=== PATIENT | male | born 1945 | race Caucasian/White ===

== ENCOUNTER 2016-10-22 07:38 | Emergency (ER) | payer MEDICARE, BC ==
--- NOTE | 2016-10-22 08:11 | EDM.PDOC ---
ED HPI ENT - General Chief Complaint: ENT Problem Stated Complaint: NOSE BLEED Time Seen by Provider: 10/22/16 07:57 Source of Information: Reports: Patient, RN notes reviewed - History of Present Illness INITIAL COMMENTS - FREE TEXT/NARRATIVE: 71-year-old male comes in with left nosebleed. This started this morning an hour or 2 ago. Was able to get that slowed down with some cotton plugs. He had no drainage down the back of his throat. He states this has been bleeding off and on for about 6 months about once every week or 2. He does take daily aspirin. He is not on any other type of blood thinner. He has no chest pain or breathing difficulty. No other unusual symptoms - Related Data Allergies/ADRs: Allergies Allergy/AdvReac Type Severity Reaction Status Date / Time No Known Allergies Allergy Verified 10/22/16 07:48 Home Meds: Home Meds Albuterol [IJD: Ventolin HFA] 2 puff INH Q4H PRN 10/22/16 [History] Aspirin [Halfprin] 81 mg PO DAILY 10/22/16 [History] Budesonide/Formoterol Fumarate [Symbicort 160-4.5 Mcg Inhaler] 2 puff INH BID [History] Diltiazem HCl [Diltiazem 24Hr ER] 360 mg PO DAILY 10/22/16 [History] Hydrochlorothiazide 25 mg PO DAILY 10/22/16 [History] Ipratropium/Albuterol Sulfate [IJD: DuoNeb 3.0-0.5 MG/3 ML] 1 inhalation NEB Q6H PRN 10/22/16 [History] Simvastatin [Zocor] 40 mg PO DAILY 10/22/16 [History] buPROPion HCl [Wellbutrin Xl] 150 mg PO DAILY 10/22/16 [History] cloNIDine HCl [Clonidine HCl] 0.1 mg PO DAILY 10/22/16 [History] Past Medical History HEENT History: Reports: Cataract, Epistaxis, Impaired vision Other HEENT History: wears eyeglasses Cardiovascular History: Reports: High cholesterol, Hypertension Respiratory History: Reports: Bronchitis, recurrent, COPD Musculoskeletal History: Reports: Back pain, chronic - Past Surgical History HEENT Surgical History: Reports: Cataract surgery Musculoskeletal Surgical History: Reports: Shoulder surgery Social & Family History - Tobacco Use Smoking Status *Q: Former Smoker Years of Tobacco use: 55 Packs/Tins Daily: 1 Used Tobacco, but Quit: Yes Month Tobacco Last Used: August - Caffeine Use Caffeine Use: Reports: Coffee, Soda - Alcohol Use Days Per Week of Alcohol Use: 7 Number of Drinks Per Day: 2 Total Drinks Per Week: 14 - Recreational Drug Use Recreational Drug Use: No ED ROS ENT - Review of Systems Review Of Systems: See Below Constitutional: Reports: no symptoms HEENT: Reports: Nosebleed. Denies: Throat pain Respiratory: Denies: Shortness of Breath Cardiovascular: Denies: Chest pain, Lightheadedness GI/Abdominal: Denies: Abdominal pain, Nausea, Vomiting Musculoskeletal: Reports: no symptoms Skin: Reports: no symptoms Neurological: Reports: No Symptoms ED EXAM, ENT - Physical Exam Exam: See Below General Appearance: alert, no apparent distress Nose: dried blood, other (Cotton plug present left nares partially blood soaked , after removal there is a small raised papule left mid septum indicating site of prior bleeding.) Mouth/Throat: Normal inspection Head: atraumatic. No: facial swelling Neck: supple Respiratory/Chest: no respiratory distress, lungs clear, normal breath sounds Cardiovascular: regular rate, rhythm Extremities: normal inspection, normal range of motion Neurological: alert, oriented, no motor/sensory deficits Skin: Warm, Dry, Normal color Course - Vital Signs Last Recorded V/S: Last Vital Signs Temp 98.2 F 10/22/16 07:45 Pulse 66 10/22/16 07:45 Resp 18 10/22/16 07:45 BP 157/74 H 10/22/16 07:45 Pulse Ox 97 10/22/16 07:45 - Orders/Labs/Meds Meds: Medications Discontinued Medications Generic Name Dose Route Start Last Admin Trade Name Doris PRN Reason Stop Dose Admin Cocaine HCl 4 ml 10/22/16 08:10 10/22/16 08:12 Cocaine Hcl TOP 10/22/16 08:11 4 ml ONETIME ONE Administration Cocaine HCl Confirm 10/22/16 08:11 Cocaine Hcl Administered 10/22/16 08:12 Dose 4 ml .ROUTE .STK-MED ONE - Re-Assessments/Exams Free Text/Narrative Re-Assessment/Exam: 10/22/16 08:32 On exam of nose there is no active bleeding but a small raised papule left septum indicating source of prior bleeding. We did use 4% cocaine solution on a cotton ball for about 10 minutes and then cauterized that with silver nitrate. No further bleeding. Patient tolerated this well Departure - Departure Time of Disposition: 08:30 Disposition: Home, Self-Care 01 Condition: fair Clinical Impression: Epistaxis Referrals: Manju Roberts, GEAR MACHINE OPERATOR [Primary Care Provider] - Forms: ED Department Discharge Additional Instructions: Stop aspirin for about 3 days. Pressure if needed for further bleeding. This will take about 3 or 4 days to heal, try not to blow nose. Return to ED as needed.
[2016-10-22 09:05] VITALS: BP 146/66
== END 2016-10-22 08:45 | disposition home or self-care (01) ==
LOC: JD.ED 07:38
DX: R04.0 Epistaxis (principal); I10 Essential (primary) hypertension; J44.9 Chronic obstructive pulmonary disease, unspecified; Z98.49 Cataract extraction status, unspecified eye; Z87.891 Personal history of nicotine dependence; Z79.82 Long term (current) use of aspirin; Z79.899 Other long term (current) drug therapy
CPT/HCPCS: 30901; 99282; 99283

== ENCOUNTER 2018-07-07 11:32 | Emergency (ER) | payer MEDICARE, BC ==
--- NOTE | 2018-07-07 12:50 | CR ---
Chest: Two views of the chest were obtained. Comparison: No prior chest x-ray. Diaphragms are flattened on the lateral view suggesting emphysematous change. Lungs are clear with no acute parenchymal change. Heart size and mediastinum are normal. Bony structures show nothing acute. Previous right shoulder surgery is noted. Impression: 1. Probable emphysematous change. 2. Nothing acute is appreciated on two-view chest x-ray. Diagnostic code #2
[2018-07-07] MEDS ORDERED: Albuterol/Ipratropium 3.0-0.5 MG/3 ML Neb Soln NEB ONE (13:15)
--- NOTE | 2018-07-07 13:28 | EDM.PDOC ---
ED HPI GENERAL MEDICAL PROBLEM - General Chief Complaint: Respiratory Problem Stated Complaint: SOB Time Seen by Provider: 07/07/18 11:46 Source of Information: Reports: Patient, RN Notes Reviewed - History of Present Illness INITIAL COMMENTS - FREE TEXT/NARRATIVE: 72 year old male with hx of COPD that has had worsening cough for the past week , mostly nonprod but occasional colored phlegm. No fever or chills. He has had some nasal and sinus zion. More short of breath than usual. No chest or abd pain, no nausea or vomiting. - Related Data Allergies Allergy/AdvReac Type Severity Reaction Status Date / Time No Known Allergies Allergy Verified 07/07/18 11:42 Home Meds: Home Meds Albuterol [IJD: Ventolin HFA] 2 puff INH Q4H PRN 10/22/16 [History] Aspirin [Halfprin] 81 mg PO DAILY 10/22/16 [History] Budesonide/Formoterol Fumarate [Symbicort 160-4.5 Mcg Inhaler] 2 puff INH BID [History] Diltiazem HCl [Diltiazem 24Hr ER] 360 mg PO DAILY 10/22/16 [History] Hydrochlorothiazide 25 mg PO DAILY 10/22/16 [History] Ipratropium/Albuterol Sulfate [IJD: DuoNeb 3.0-0.5 MG/3 ML] 1 inhalation NEB Q6H PRN 10/22/16 [History] Simvastatin [Zocor] 40 mg PO DAILY 10/22/16 [History] buPROPion HCl [Wellbutrin Xl] 150 mg PO DAILY 10/22/16 [History] cloNIDine HCl [Clonidine HCl] 0.1 mg PO DAILY 10/22/16 [History] Doxycycline [Vibramycin] 100 mg IV Q12H #20 vial 07/07/18 [Rx] Doxycycline [Vibramycin] 100 mg PO BID #20 tab 07/07/18 [Rx] predniSONE [Prednisone] 40 mg PO DAILY #10 tablet 07/07/18 [Rx] Past Medical History HEENT History: Reports: Cataract, Epistaxis, Impaired Vision Other HEENT History: Partial dentures Cardiovascular History: Reports: High Cholesterol, Hypertension Respiratory History: Reports: Bronchitis, Recurrent, COPD, Sleep Apnea Musculoskeletal History: Reports: Back Pain, Chronic - Past Surgical History HEENT Surgical History: Reports: Cataract Surgery Cardiovascular Surgical History: Reports: None Respiratory Surgical History: Reports: None Musculoskeletal Surgical History: Reports: Shoulder Surgery, Other (See Below) Other Musculoskeletal Surgeries/Procedures:: Csyt removed from back Social & Family History - Family History Family Medical History: Noncontributory - Tobacco Use Smoking Status *Q: Current Every Day Smoker Years of Tobacco use: 50 Packs/Tins Daily: 0.3 - Caffeine Use Caffeine Use: Reports: Coffee - Recreational Drug Use Recreational Drug Use: No ED ROS GENERAL - Review of Systems Review Of Systems: See Below Constitutional: Denies: Fever, Chills HEENT: Reports: Rhinitis. Denies: Throat Pain Respiratory: Reports: Shortness of Breath, Wheezing, Cough, Sputum. Denies: Pleuritic Chest Pain Cardiovascular: Reports: Chest Pain (with coughing) GI/Abdominal: Denies: Abdominal Pain, Nausea, Vomiting Musculoskeletal: Denies: Leg Pain Skin: Denies: Rash Neurological: Denies: Headache ED EXAM, GENERAL - Physical Exam Exam: See Below General Appearance: Alert, No Apparent Distress Eye Exam: Bilateral Eye: PERRL Nose: Normal Inspection Throat/Mouth: Normal Inspection, Normal Oropharynx Head: Atraumatic. No: Facial Swelling Neck: Supple, Full Range of Motion, Other (no JVD). No: Lymphadenopathy (L), Lymphadenopathy (R) Respiratory/Chest: No Respiratory Distress, Decreased Breath Sounds (mild bilat) , Wheezing (mild). No: Rhonchi Cardiovascular: Regular Rate, Rhythm GI/Abdominal: Soft, Non-Tender Extremities: Normal Inspection, Normal Range of Motion. No: Pedal Edema, Leg Pain Neurological: Alert, Oriented, No Motor/Sensory Deficits Skin Exam: Warm, Dry, Normal Color Course - Vital Signs Last Recorded V/S: Last Vital Signs Temp 98.3 F 07/07/18 13:40 Pulse 60 07/07/18 13:40 Resp 17 07/07/18 13:40 BP 139/49 L 07/07/18 13:40 Pulse Ox 94 L 07/07/18 13:40 - Orders/Labs/Meds Labs: Laboratory Tests 07/07/18 Range/Units 12:20 WBC 12.61 H (4.23-9.07) K/mm3 RBC 3.99 L (4.63-6.08) M/mm3 Hgb 13.1 L (13.7-17.5) gm/L Hct 36.7 L (40.1-51.0) % MCV 92.0 (79.0-92.2) fl MCH 32.8 H (25.7-32.2) pg MCHC 35.7 H (32.2-35.5) g/dl RDW Std Deviation 43.5 (35.1-43.9) fL Plt Count 308 (163-337) K/mm3 MPV 7.8 L (9.4-12.3) fl Neut % (Auto) 82.0 H (34.0-67.9) % Lymph % (Auto) 10.4 L (21.8-53.1) % [place] % (Auto) 7.1 (5.3-12.2) % Eos % (Auto) 0.1 L (0.8-7.0) Baso % (Auto) 0.1 (0.1-1.2) % Neut # (Auto) 10.34 H (1.78-5.38) K/mm3 Lymph # (Auto) 1.31 L (1.32-3.57) K/mm3 [place] # (Auto) 0.90 H (0.30-0.82) K/mm3 Eos # (Auto) 0.01 L (0.04-0.54) K/mm3 Baso # (Auto) 0.01 (0.01-0.08) K/mm3 Meds: Medications Discontinued Medications Generic Name Dose Route Start Last Admin Trade Name Freq PRN Reason Stop Dose Admin Albuterol/Ipratropium 3 ml 07/07/18 13:15 07/07/18 13:28 Duoneb 3.0-0.5 Mg/3 Ml NEB 07/07/18 13:16 3 ml ONETIME ONE Administration - Re-Assessments/Exams Free Text/Narrative Re-Assessment/Exam: 07/09/18 14:18 X ray does not show acute infiltrate Departure - Departure Time of Disposition: 13:25 Disposition: Home, Self-Care 01 Condition: Fair Clinical Impression: Bronchitis - Discharge Information Prescriptions: Doxycycline [Vibramycin] 100 mg PO BID #20 tab Doxycycline [Vibramycin] 100 mg IV Q12H #20 vial predniSONE [Prednisone] 40 mg PO DAILY #10 tablet Instructions: Acute Bronchitis, Adult, [id number] Referrals: Liyah Henry NP [Primary Care Provider] - Forms: ED Department Discharge Additional Instructions: doxycycline 100 mg twice daily for 10 days or until gone, prednisone 40 mg q day for today and q am for the next 3 days, than 20 mg q AM for the next 2 days. Follow up clinic if not much better within 5 to 7 days as expected. Return to ED if symptoms worsening in any way.
[2018-07-07 14:38] VITALS: BP 139/49
== END 2018-07-07 13:42 | disposition home or self-care (01) ==
LOC: JD.ED 11:32
DX: J40 Bronchitis, not specified as acute or chronic (principal); I10 Essential (primary) hypertension; E78.00 Pure hypercholesterolemia, unspecified; F17.210 Nicotine dependence, cigarettes, uncomplicated; Z79.82 Long term (current) use of aspirin; Z79.899 Other long term (current) drug therapy; Z98.890 Other specified postprocedural states; Z98.49 Cataract extraction status, unspecified eye
CPT/HCPCS: 36415; 71046; 71046-26; 85025; 94640; 99285-25; J7620-GY

== ENCOUNTER 2019-07-15 12:23 | Inpatient (IN) | payer MEDICARE, BC, OTHER ==
[2019-07-15] MEDS ORDERED: Albuterol/Ipratropium 3.0-0.5 MG/3 ML Neb Soln ONE (12:32)
[2019-07-15] MEDS ORDERED: Sodium Chloride 0.9% 10 ML Syringe FLUSH PRN (12:35)
[2019-07-15] MEDS ORDERED: Albuterol/Ipratropium 3.0-0.5 MG/3 ML Neb Soln NEB ONE ×3 (12:35→13:43)
[2019-07-15] MEDS ORDERED: methylPREDNISolone Sodium Succinate 125 MG/2 ML SDV IVPUSH ONE (12:35)
--- NOTE | 2019-07-15 12:43 | EDM.PDOC ---
ED HPI GENERAL MEDICAL PROBLEM - General Chief Complaint: Respiratory Problem Stated Complaint: SOB Time Seen by Provider: 07/15/19 12:34 Source of Information: Reports: Patient History Limitations: Reports: No Limitations - History of Present Illness INITIAL COMMENTS - FREE TEXT/NARRATIVE: Patient is an unfortunate 73-year-old male who presents emergency Department today with complaint of shortness of breath. Patient has a history of COPD and has been in the emergency department here previously for exacerbations of his COPD. Patient is not oxygen dependent does not wear oxygen at home. He reports that yesterday he awoke and was short of breath and wheezing went to the urgent care was diagnosed with a COPD [place] and bronchitis was placed on doxycycline and prednisone was sent home. He reports she's been using his nebulizer at home with minimal improvement in symptoms his symptoms worsened today so he presented emergency department for evaluation. On arrival the emergency department patient's O2 saturation on room air was 86%. Patient was tachypnea retracting and had diffuse wheezing patient denies any fever no chills cough is nonproductive Upper Back Pain Score (Numeric/FACES): 7 - Related Data Allergies Allergy/AdvReac Type Severity Reaction Status Date / Time No Known Allergies Allergy Verified 07/15/19 12:51 Home Meds: Home Meds Albuterol [IJD: Ventolin HFA] 2 puff INH Q4H PRN 10/22/16 [History] Aspirin [Halfprin] 81 mg PO DAILY 10/22/16 [History] Budesonide/Formoterol Fumarate [Symbicort 160-4.5 Mcg Inhaler] 2 puff INH BID [History] Diltiazem HCl [Diltiazem 24Hr ER] 360 mg PO DAILY 10/22/16 [History] Hydrochlorothiazide 50 mg PO DAILY 10/22/16 [History] Ipratropium/Albuterol Sulfate [IJD: DuoNeb 3.0-0.5 MG/3 ML] 1 inhalation NEB Q6H PRN 10/22/16 [History] Simvastatin [Zocor] 80 mg PO DAILY 10/22/16 [History] buPROPion HCl [Wellbutrin Xl] 150 mg PO DAILY 10/22/16 [History] cloNIDine HCL [Clonidine HCl] 0.1 mg PO DAILY 10/22/16 [History] Doxycycline [Vibramycin] 100 mg PO BID #20 tab 07/07/18 [Rx] predniSONE [Prednisone] 40 mg PO DAILY #10 tablet 07/07/18 [Rx] B2/Vits A,C,E/Lut/Zeaxanth/Min [Icaps] 1 each PO DAILY 07/15/19 [History] Past Medical History HEENT History: Reports: Cataract, Epistaxis, Impaired Vision Other HEENT History: Partial dentures Cardiovascular History: Reports: High Cholesterol, Hypertension Respiratory History: Reports: Bronchitis, Recurrent, COPD, Sleep Apnea Musculoskeletal History: Reports: Back Pain, Chronic - Past Surgical History HEENT Surgical History: Reports: Cataract Surgery Cardiovascular Surgical History: Reports: None Respiratory Surgical History: Reports: None Musculoskeletal Surgical History: Reports: Shoulder Surgery, Other (See Below) Other Musculoskeletal Surgeries/Procedures:: Csyt removed from back Social & Family History - Family History Family Medical History: Noncontributory - Caffeine Use Caffeine Use: Reports: Coffee ED ROS GENERAL - Review of Systems Review Of Systems: See Below Constitutional: Denies: Fever, Chills Respiratory: Reports: Shortness of Breath, Wheezing, Cough Cardiovascular: Denies: Chest Pain ED EXAM, GENERAL - Physical Exam Exam: See Below Exam Limited By: No Limitations General Appearance: Alert, WD/WN, Mild Distress Respiratory/Chest: Respiratory Distress (Tachypnea with retractions), Decreased Breath Sounds (In both bases), Wheezing (Diffuse) Cardiovascular: Normal Peripheral Pulses, Regular Rate, Rhythm GI/Abdominal: Normal Bowel Sounds, Soft, Non-Tender, No Organomegaly, No Distention, No Abnormal Bruit, No Mass Back Exam: Normal Inspection, Full Range of Motion, NT Extremities: Normal Inspection, Normal Range of Motion, Non-Tender, Normal Capillary Refill, No Pedal Edema Neurological: Alert, Oriented Skin Exam: Warm, Dry EKG INTERPRETATION EKG Date: 07/15/19 Time: 12:47 Rhythm: NSR Rate (Beats/Min): 71 [place]: Normal P-Wave: Present QRS: Normal ST-T: Normal QT: Normal Course - Vital Signs Last Recorded V/S: Last Vital Signs Temp 99.3 F 07/15/19 12:25 Pulse 70 07/15/19 12:25 Resp 20 07/15/19 12:25 BP 160/65 H 07/15/19 12:25 Pulse Ox 96 07/15/19 14:11 - Orders/Labs/Meds Orders: Active Orders 24 hr Category Date Time Status EKG Documentation Completion [RC] ASDIRECTED Care 07/15/19 12:36 Active Oxygen Therapy [RC] ASDIRECTED Care 07/15/19 12:37 Active RT Aerosol Therapy [RC] ASDIRECTED Care 07/15/19 12:36 Active RT Aerosol Therapy [RC] ASDIRECTED Care 07/15/19 13:43 Active RT Arterial Blood Gases, ABG [RC] Click to Edit Care 07/15/19 14:53 Active CBC WITH AUTO DIFF [HEME] Stat Lab 07/15/19 11:23 Results CULTURE BLOOD [BC] Stat Lab 07/15/19 13:40 Received CULTURE BLOOD [BC] Stat Lab 07/15/19 13:51 Received UA RFX DREW AND CULT IF INDIC [URIN] Stat Lab 07/15/19 12:35 Ordered Levofloxacin/Dextrose 5%-Water [Levaquin in D5W 500 MG/ Med 07/15/19 14:50 Active 100 ML] 500 mg Premix Bag 1 bag IV ONETIME Sodium Chloride 0.9% [Saline Flush] Med 07/15/19 12:35 Active 10 ml FLUSH ASDIRECTED PRN Blood Culture x2 Reflex Set [OM.PC] Stat Oth 07/15/19 12:35 Ordered Saline Lock Insert [OM.PC] Stat Oth 07/15/19 12:35 Ordered EKG 12 Lead [EK] Stat Ther 07/15/19 12:35 Ordered Medication Orders Levofloxacin/Dextrose 500 mg/ (Premix) 100 mls @ 100 mls/hr IV ONETIME ONE Stop: 07/15/19 15:49 Sodium Chloride (Saline Flush) 10 ml FLUSH ASDIRECTED PRN PRN Reason: Keep Vein Open Last Admin: 07/15/19 13:00 Dose: 10 ml Labs: Laboratory Tests 07/15/19 07/15/19 07/15/19 Range/Units 11:23 11:23 11:23 WBC 12.11 H (4.23-9.07) K/mm3 RBC 4.42 L (4.63-6.08) M/mm3 Hgb 14.1 (13.7-17.5) gm/dl Hct 42.1 (40.1-51.0) % MCV 95.2 H D (79.0-92.2) fl MCH 31.9 (25.7-32.2) pg MCHC 33.5 (32.2-35.5) g/dl RDW Std Deviation 44.9 H (35.1-43.9) fL Plt Count 352 H (163-337) K/mm3 MPV 8.5 L (9.4-12.3) fl Neut % (Auto) 85.3 H (34.0-67.9) % Lymph % (Auto) 8.3 L (21.8-53.1) % [place] % (Auto) 5.5 (5.3-12.2) % Eos % (Auto) 0 L (0.8-7.0) Baso % (Auto) 0.2 (0.1-1.2) % Neut # (Auto) 10.33 H (1.78-5.38) K/mm3 Lymph # (Auto) 1.01 L (1.32-3.57) K/mm3 [place] # (Auto) 0.67 (0.30-0.82) K/mm3 Eos # (Auto) 0.00 L (0.04-0.54) K/mm3 Baso # (Auto) 0.02 (0.01-0.08) K/mm3 Sodium 132 L (136-145) mEq/L Potassium 3.7 (3.5-5.1) mEq/L Chloride 94 L (98-107) mEq/L Carbon Dioxide 26 (21-32) mEq/L Anion Gap 15.7 H (5-15) BUN 26 H (7-18) mg/dL Creatinine 1.2 (0.7-1.3) mg/dL Est Cr Clr Drug Dosing 49.47 mL/min Estimated GFR (MDRD) 59 (>60) mL/min BUN/Creatinine Ratio 21.7 H (14-18) Glucose 198 H (83-115) mg/dL Lactic Acid (0.4-2.0) mmol/L Calcium 9.5 (8.5-10.1) mg/dL Total Bilirubin 0.2 (0.2-1.0) mg/dL AST 9 L (15-37) U/L ALT 25 (16-63) U/L Alkaline Phosphatase 94 (46-116) U/L Troponin I < 0.017 (0.00-0.056) ng/mL NT-Pro-B Natriuret Pep 148 H (0-125) pg/mL Total Protein 7.5 (6.4-8.2) g/dl Albumin 3.9 (3.4-5.0) g/dl Globulin 3.6 gm/dL Albumin/Globulin Ratio 1.1 (1-2) 07/15/19 Range/Units 13:40 WBC (4.23-9.07) K/mm3 RBC (4.63-6.08) M/mm3 Hgb (13.7-17.5) gm/dl Hct (40.1-51.0) % MCV (79.0-92.2) fl MCH (25.7-32.2) pg MCHC (32.2-35.5) g/dl RDW Std Deviation (35.1-43.9) fL Plt Count (163-337) K/mm3 MPV (9.4-12.3) fl Neut % (Auto) (34.0-67.9) % Lymph % (Auto) (21.8-53.1) % [place] % (Auto) (5.3-12.2) % Eos % (Auto) (0.8-7.0) Baso % (Auto) (0.1-1.2) % Neut # (Auto) (1.78-5.38) K/mm3 Lymph # (Auto) (1.32-3.57) K/mm3 [place] # (Auto) (0.30-0.82) K/mm3 Eos # (Auto) (0.04-0.54) K/mm3 Baso # (Auto) (0.01-0.08) K/mm3 Sodium (136-145) mEq/L Potassium (3.5-5.1) mEq/L Chloride (98-107) mEq/L Carbon Dioxide (21-32) mEq/L Anion Gap (5-15) BUN (7-18) mg/dL Creatinine (0.7-1.3) mg/dL Est Cr Clr Drug Dosing mL/min Estimated GFR (MDRD) (>60) mL/min BUN/Creatinine Ratio (14-18) Glucose (83-115) mg/dL Lactic Acid 2.2 H* (0.4-2.0) mmol/L Calcium (8.5-10.1) mg/dL Total Bilirubin (0.2-1.0) mg/dL AST (15-37) U/L ALT (16-63) U/L Alkaline Phosphatase (46-116) U/L Troponin I (0.00-0.056) ng/mL NT-Pro-B Natriuret Pep (0-125) pg/mL Total Protein (6.4-8.2) g/dl Albumin (3.4-5.0) g/dl Globulin gm/dL Albumin/Globulin Ratio (1-2) Meds: Medications Generic Name Dose Route Start Last Admin Trade Name Freq PRN Reason Stop Dose Admin Levofloxacin/Dextrose 500 mg/ 100 mls @ 100 mls/hr 07/15/19 14:50 Premix IV 07/15/19 15:49 ONETIME ONE Sodium Chloride 10 ml 07/15/19 12:35 07/15/19 13:00 Saline Flush FLUSH 10 ml ASDIRECTED PRN Administration Keep Vein Open Discontinued Medications Generic Name Dose Route Start Last Admin Trade Name Freq PRN Reason Stop Dose Admin Albuterol/Ipratropium Confirm 07/15/19 12:32 07/15/19 12:39 Duoneb 3.0-0.5 Mg/3 Ml Administered 07/15/19 12:33 6 ml Dose Administration 6 ml .ROUTE .STK-MED ONE Albuterol/Ipratropium 6 ml 07/15/19 12:35 07/15/19 14:11 Duoneb 3.0-0.5 Mg/3 Ml NEB 07/15/19 12:36 Not Given ONETIME ONE Albuterol/Ipratropium 6 ml 07/15/19 12:35 Duoneb 3.0-0.5 Mg/3 Ml NEB 07/15/19 12:36 ONETIME ONE Albuterol/Ipratropium 3 ml 07/15/19 13:43 07/15/19 14:11 Duoneb 3.0-0.5 Mg/3 Ml NEB 07/15/19 13:44 3 ml ONETIME ONE Administration Methylprednisolone Sodium Succinate 125 mg 07/15/19 12:35 07/15/19 12:59 Solu-Medrol IVPUSH 07/15/19 12:36 125 mg ONETIME ONE Administration - Re-Assessments/Exams Free Text/Narrative Re-Assessment/Exam: 07/15/19 13:13 Chest x-ray interpreted by me NAD Free Text/Narrative Re-Assessment/Exam: 07/15/19 13:44 Patient has had mild improvement in her tachypnea continues to have diffuse wheezing Free Text/Narrative Re-Assessment/Exam: 07/15/19 15:[address] Bhagat who accepts patient for inpatient admission for COPD exacerbation and sepsis Departure - Departure Time of Disposition: 15:01 Disposition: Admitted As Inpatient 66 Condition: Good (Guarded) Clinical Impression: COPD exacerbation Sepsis Qualifiers: Sepsis type: sepsis due to unspecified organism Sepsis acute organ dysfunction status: unspecified Qualified Code(s): A41.9 - Sepsis, unspecified organism - Discharge Information Referrals: Rosemary Carnes MD [Primary Care Provider] - Forms: ED Department Discharge Sepsis Event Note - Focused Exam Vital Signs: Vital Signs Temp Pulse Resp BP Pulse Ox Pulse Ox 07/15/19 14:11 96 07/15/19 12:40 97 07/15/19 12:25 99.3 F 70 20 160/65 H 86 L Date Exam was Performed: 07/15/19 Time Exam was Performed: 15:01 - My Orders Last 24 Hours: My Active Orders 07/15/19 11:23 CBC WITH AUTO DIFF [HEME] Stat 07/15/19 12:35 UA RFX DREW AND CULT IF INDIC [URIN] Stat Sodium Chloride 0.9% [Saline Flush] 10 ml FLUSH ASDIRECTED PRN Blood Culture x2 Reflex Set [OM.PC] Stat Saline Lock Insert [OM.PC] Stat EKG 12 Lead [EK] Stat 07/15/19 12:36 EKG Documentation Completion [RC] ASDIRECTED RT Aerosol Therapy [RC] ASDIRECTED 07/15/19 12:37 Oxygen Therapy [RC] ASDIRECTED 07/15/19 13:40 CULTURE BLOOD [BC] Stat 07/15/19 13:43 RT Aerosol Therapy [RC] ASDIRECTED 07/15/19 13:51 CULTURE BLOOD [BC] Stat 07/15/19 14:50 Levofloxacin/Dextrose 5%-Water [Levaquin in D5W 500 MG/100 ML] 500 mg Premix Bag 1 bag IV ONETIME 07/15/19 14:53 RT Arterial Blood Gases, ABG [RC] Click to Edit - Assessment/Plan Last 24 Hours: My Active Orders 07/15/19 11:23 CBC WITH AUTO DIFF [HEME] Stat 07/15/19 12:35 UA RFX DREW AND CULT IF INDIC [URIN] Stat Sodium Chloride 0.9% [Saline Flush] 10 ml FLUSH ASDIRECTED PRN Blood Culture x2 Reflex Set [OM.PC] Stat Saline Lock Insert [OM.PC] Stat EKG 12 Lead [EK] Stat 07/15/19 12:36 EKG Documentation Completion [RC] ASDIRECTED RT Aerosol Therapy [RC] ASDIRECTED 07/15/19 12:37 Oxygen Therapy [RC] ASDIRECTED 07/15/19 13:40 CULTURE BLOOD [BC] Stat 07/15/19 13:43 RT Aerosol Therapy [RC] ASDIRECTED 07/15/19 13:51 CULTURE BLOOD [BC] Stat 07/15/19 14:50 Levofloxacin/Dextrose 5%-Water [Levaquin in D5W 500 MG/100 ML] 500 mg Premix Bag 1 bag IV ONETIME 07/15/19 14:53 RT Arterial Blood Gases, ABG [RC] Click to Edit
--- NOTE | 2019-07-15 14:13 | CR ---
Chest: Portable view of the chest was obtained. Comparison: Prior chest x-ray of 07/07/18. Heart size and mediastinum are within normal limits for portable technique. Lungs are clear with no acute parenchymal change. Bony structures are grossly intact. Impression: 1. Nothing acute is seen on portable chest x-ray. Diagnostic code #1 This report was dictated in [place] Standard Time
[2019-07-15] MEDS ORDERED: Levofloxacin/Dextrose 5%-Water 500 MG in Premix Bag 1 BAG IV ONE (14:50)
[2019-07-15] MEDS ORDERED: Ondansetron 4 MG/2 ML SDV IV PRN (16:13)
[2019-07-15] MEDS ORDERED: Ondansetron 4 MG Tab.DIS PO PRN (16:13)
[2019-07-15] MEDS: Oseltamivir 75 MG Cap PO SCH ×2 (16:20→21:13)
[2019-07-15] MEDS: Albuterol/Ipratropium 3.0-0.5 MG/3 ML Neb Soln NEB SCH ×2 (17:00→20:59)
--- NOTE | 2019-07-15 19:33 | PCM.HP.2 ---
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 Symptoms improved mildly but early this morning he started feeling exponentially worse for which he decided to come to the ED. Upper Back Pain Score (Numeric/FACES): 7 - Related Data Allergies/Adverse Reactions: Allergies Allergy/AdvReac Type Severity Reaction Status Date / Time No Known Allergies Allergy Verified 07/15/19 18:40 Home Medications: Home Meds Aspirin [Halfprin] 81 mg PO DAILY 10/22/16 [History] Budesonide/Formoterol Fumarate [Symbicort 160-4.5 Mcg Inhaler] 2 puff INH BID [History] Diltiazem HCl [Diltiazem 24Hr ER] 360 mg PO DAILY 10/22/16 [History] Hydrochlorothiazide 12.5 mg PO DAILY 10/22/16 [History] Ipratropium/Albuterol Sulfate [IJD: DuoNeb 3.0-0.5 MG/3 ML] 1 inhalation NEB Q6H PRN 10/22/16 [History] buPROPion HCl [Wellbutrin Xl] 150 mg PO DAILY 10/22/16 [History] cloNIDine HCL [Clonidine HCl] 0.1 mg PO DAILY 10/22/16 [History] Doxycycline [Vibramycin] 100 mg PO BID #20 tab 07/07/18 [Rx] predniSONE [Prednisone] 40 mg PO DAILY #10 tablet 07/07/18 [Rx] B2/Vits A,C,E/Lut/Zeaxanth/Min [Icaps] 1 each PO DAILY 07/15/19 [History] Cholecalciferol (Vitamin D3) [Vitamin D3] 2,000 unit PO DAILY 07/15/19 [History] Rosuvastatin Calcium 10 mg PO BEDTIME 07/15/19 [History] Past Medical History HEENT History: Reports: Cataract, Epistaxis, Impaired Vision Other HEENT History: Partial lower dentures. wears glasses Cardiovascular History: Reports: High Cholesterol, Hypertension Respiratory History: Reports: Bronchitis, Recurrent, COPD, Sleep Apnea Other Respiratory History: wear cpap at night Gastrointestinal History: Reports: None Genitourinary History: Reports: Urinary Incontinence Musculoskeletal History: Reports: Back Pain, Chronic Psychiatric History: Reports: None Endocrine/Metabolic History: Reports: None Hematologic History: Reports: None Immunologic History: Reports: None Oncologic (Cancer) History: Reports: None Dermatologic History: Reports: None - Infectious Disease History Infectious Disease History: Reports: Chicken Pox, Measles, Mumps - Past Surgical History HEENT Surgical History: Reports: Cataract Surgery Cardiovascular Surgical History: Reports: None Respiratory Surgical History: Reports: None GI Surgical History: Reports: Colonoscopy Neurological Surgical History: Reports: Lumbar Spine Musculoskeletal Surgical History: Reports: Shoulder Surgery, Other (See Below) Other Musculoskeletal Surgeries/Procedures:: Cyst removed from back Social & Family History - Family History Family Medical History: Noncontributory - Tobacco Use Smoking Status *Q: Former Smoker Used Tobacco, but Quit: Yes Month/Year Tobacco Last Used: 2015 - Caffeine Use Caffeine Use: Reports: Coffee Other Caffeine Use: decaff - Recreational Drug Use Recreational Drug Use: No H&P Review of Systems - Review of Systems: Review Of Systems: See Below General: Reports: Fatigue. Denies: Fever, Chills, Malaise, Weakness, Night Sweats, Diaphoresis, Decreased Appetite, Weight Loss, Weight Gain HEENT: Denies: Headaches, Rhinitis, Post Nasal Drip, Sinus Congestion, Sore Throat, Vertigo, Visual Changes Pulmonary: Reports: Shortness of Breath, Wheezing, Cough, Sputum. Denies: Pleuritic Chest Pain, Hemoptysis Cardiovascular: Denies: Chest Pain, Palpitations, Dyspnea on Exertion, Orthopnea , PND, Edema, Lightheadedness, Syncope Gastrointestinal: Denies: Abdominal Pain, Anorexia, Constipation, Diarrhea, Decreased Appetite, Difficulty Swallowing, Distension, Flatus, Nausea, Vomiting Genitourinary: Denies: Dysuria, Frequency, Burning, Pain, Urgency, Incontinence , Retention Musculoskeletal: Denies: Joint Pain, Joint Swelling, Muscle Pain Skin: Denies: Cyanosis, Jaundice, Mottled, Pallor, Diaphoresis, Dryness, Bruising Psychiatric: Denies: Confusion, Depression, Mood Lability, Anxiety Neurological: Denies: Confusion, Dizziness, Headache, Numbness Exam - Exam Exam: See Below - Vital Signs Vital Signs: Last Vital Signs Temp 97.5 F 07/15/19 18:27 Pulse 68 07/15/19 18:27 Resp 20 07/15/19 18:27 BP 168/72 H 07/15/19 18:27 Pulse Ox 96 07/15/19 18:27 Weight: 78.426 kg - Exam Quality Assessment: Supplemental Oxygen General: Alert, Oriented, Cooperative, Moderate Distress HEENT: Conjunctiva Clear, EACs Clear, EOMI, Hearing Intact, Mucosa Moist & [place] Neck: Supple, Trachea Midline, +2 Carotid Pulse wo Bruit, Full Range of Motion. No: Lymphadenopathy Lungs: Decreased Breath Sounds, Wheezing. No: Crackles, Rales, Rhonchi, Rub Cardiovascular: Regular Rate, Regular Rhythm. No: Systolic Murmur, Diastolic Murmur, Rubs, Gallop/S3, Gallop/S4 GI/Abdominal Exam: Normal Bowel Sounds, Non-Tender, No Organomegaly, No Distention. No: Guarding, Rigid, Rebound Back Exam: Normal Inspection Extremities: Normal Inspection, Non-Tender, No Pedal Edema, Normal Capillary Refill Skin: Warm, Dry Neuro Extensive - Mental Status: Alert, Oriented x3 Psychiatric: Alert, Normal Affect, Normal Mood - Patient Data Result Diagrams: 07/16/19 05:45 07/16/19 05:45 Sepsis Event Note - Evaluation Sepsis Screening Result: No Definite Risk - Focused Exam Vital Signs: Vital Signs Temp Temp Pulse Pulse Resp BP BP 07/15/19 18:27 97.5 F 68 20 168/72 H 07/15/19 17:01 07/15/19 14:11 07/15/19 12:40 07/15/19 12:25 99.3 F 70 20 160/65 H Pulse Ox Pulse Ox 07/15/19 18:27 96 07/15/19 17:01 93 L 07/15/19 14:11 96 07/15/19 12:40 97 07/15/19 12:25 86 L Date Exam was Performed: 07/16/19 Time Exam was Performed: 14:25 - Problem List (1) COPD exacerbation SNOMED Code(s): 317281215 ICD Code: J44.1 - CHRONIC OBSTRUCTIVE PULMONARY DISEASE W (ACUTE) EXACERBATION Status: Acute Current Visit: Yes (2) Acute hypoxemic respiratory failure SNOMED Code(s): 851879834 ICD Code: J96.01 - ACUTE RESPIRATORY FAILURE WITH HYPOXIA Status: Acute Current Visit: Yes (3) Community acquired pneumonia SNOMED Code(s): 931848410 ICD Code: J18.9 - PNEUMONIA, UNSPECIFIED ORGANISM Status: Acute Current Visit: Yes (4) Lactic acid increased SNOMED Code(s): 04256820 ICD Code: E87.2 - ACIDOSIS Status: Acute Current Visit: Yes (5) Influenza vaccination up to date SNOMED Code(s): 581245315, 304640375 ICD Code: Z78.9 - OTHER SPECIFIED HEALTH STATUS Status: Acute Current Visit: Yes (6) Exposure to influenza SNOMED Code(s): 546579164 ICD Code: Z20.828 - CONTACT W AND EXPOSURE TO OTH VIRAL COMMUNICABLE DISEASES Status: Acute Current Visit: Yes (7) Hypertension SNOMED Code(s): 89888948 ICD Code: I10 - ESSENTIAL (PRIMARY) HYPERTENSION Status: Acute Current Visit: Yes (8) Dyslipidemia SNOMED Code(s): 300974600 ICD Code: E78.5 - HYPERLIPIDEMIA, UNSPECIFIED Status: Acute Current Visit : Yes Problem List Initiated/Reviewed/Updated: Yes Assessment/Plan Comment:: COPD exacerbation Acute hypoxemic respiratory failure Community acquired pneumonia Lactic acid increased Influenza vaccination up to date / Exposure to influenza Worsening shortness of breath and productive cough of white sputum 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 pneumo and respiratory panel testing - Repeat lactic acid 3h after initial lab - Start Tamiflu 75mg BID - Rt assessment and treat - Hold home nebs and inhalers Hypertension BP on admission 160/65 Patient SOB and in significant distress On diltiazem and HCTZ at home PLAN - Monitor BP - Continue home meds - PRN hydralazine PROPHYLAXIS DVT-antiembolic device GI- Not indicated CODE STATUS: FULL CODE DISPOSITION: Patient will be admitted on scheduled nebs, pending serologies for etiology and steroids. Discharge likely in the next 24-48 hours Lives at home with , independent. - Mortality Measure Prognosis:: Good
[2019-07-15] MEDS: Benzonatate 100 MG Cap PO SCH (21:14)
[2019-07-15] MEDS: guaiFENesin 600 MG Tab.ER PO SCH (21:14)
[2019-07-15] MEDS: Acetaminophen 325 MG Tab PO PRN (21:30)
[2019-07-15] MEDS: Azithromycin 250 MG Tab PO SCH (22:56)
[2019-07-16] MEDS: Albuterol/Ipratropium 3.0-0.5 MG/3 ML Neb Soln NEB SCH ×6 (01:52→22:30)
[2019-07-16] MEDS: Budesonide 0.5 MG/2 ML Neb Susp NEB SCH ×4 (01:52→22:30)
[2019-07-16] MEDS: Acetaminophen 325 MG Tab PO PRN (04:48)
[2019-07-16] MEDS: Benzonatate 100 MG Cap PO SCH ×3 (08:37→20:36)
[2019-07-16] MEDS: guaiFENesin 600 MG Tab.ER PO SCH ×2 (08:37→20:36)
[2019-07-16] MEDS: Oseltamivir 75 MG Cap PO SCH ×2 (08:38→20:36)
[2019-07-16] MEDS: ROSUVASTATIN CALCIUM 20 MG PO SCH ×2 (09:31→20:40)
[2019-07-16] MEDS: DILTIAZEM HCL 360 MG PO SCH (09:39)
[2019-07-16] MEDS: cloNIDine 0.1 MG Tab PO SCH (09:39)
[2019-07-16] MEDS: Aspirin 81 MG Tab.EC PO SCH (09:39)
[2019-07-16] MEDS: PREDNISONE 20 MG PO SCH (09:40)
[2019-07-16] MEDS: buPROPion 150 MG Tab.ER PO SCH (09:40)
[2019-07-16] MEDS: Hydrochlorothiazide 25 MG Tab **PTOM PO SCH (09:47)
--- NOTE | 2019-07-16 14:22 | PCM.PN ---
- General Info Date of Service: 07/16/19 Subjective Update: Feeling better Slept ok Eating ok Ambulating BM today - Patient Data Vitals - Most Recent: Last Vital Signs Temp 97.3 F 07/16/19 11:39 Pulse 78 07/16/19 11:39 Resp 20 07/16/19 11:39 BP 144/48 H 07/16/19 11:39 Pulse Ox 96 07/16/19 11:39 Weight - Most Recent: 76.884 kg - Exam Quality Assessment: Supplemental Oxygen General: Alert, Oriented, Cooperative, Mild Distress HEENT: Pupils Equal, Pupils Reactive, EOMI, Mucous Membr. Moist/[place] Neck: Supple, Trachea Midline, No JVD, No Thyromegaly, +2 Carotid Pulse wo Bruit Lungs: Decreased Breath Sounds, Wheezing. No: Clear to Auscultation, Crackles, Rales, Rhonchi Cardiovascular: Regular Rate, Regular Rhythm. No: Murmurs, Gallops, Rubs GI/Abdominal Exam: Normal Bowel Sounds, Soft, Non-Tender. No: Distended, Guarding, Rigid, Rebound Back Exam: Normal Inspection Extremities: Normal Inspection, Normal Range of Motion, Non-Tender, No Pedal Edema, Normal Capillary Refill Skin: Warm, Dry Neurological: No New Focal Deficit Psy/Mental Status: Alert, Normal Affect, Normal Mood Sepsis Event Note - Evaluation Sepsis Screening Result: No Definite Risk - Focused Exam Vital Signs: Vital Signs Temp Pulse Resp BP Pulse Ox Pulse Ox 07/16/19 11:39 97.3 F 78 20 144/48 H 96 07/16/19 09:46 93 L 07/16/19 09:39 136/80 07/16/19 08:39 79 96 07/16/19 08:35 97.5 F 77 20 136/80 97 07/16/19 08:11 95 07/16/19 06:06 91 L 07/16/19 04:26 98.1 F 85 20 168/99 H 95 Date Exam was Performed: 07/16/19 Time Exam was Performed: 14:51 - Problem List & Annotations (1) Mycoplasma pneumonia SNOMED Code(s): 90289540 Code(s): J15.7 - PNEUMONIA DUE TO MYCOPLASMA PNEUMONIAE Status: Acute Current Visit: Yes (2) Acute hypoxemic respiratory failure SNOMED Code(s): 535602704 Code(s): J96.01 - ACUTE RESPIRATORY FAILURE WITH HYPOXIA Status: Acute Current Visit: Yes (3) COPD exacerbation SNOMED Code(s): 727403883 Code(s): J44.1 - CHRONIC OBSTRUCTIVE PULMONARY DISEASE W (ACUTE) EXACERBATION Status: Acute Current Visit: Yes (4) Community acquired pneumonia SNOMED Code(s): 085540607 Code(s): J18.9 - PNEUMONIA, UNSPECIFIED ORGANISM Status: Acute Current Visit: Yes (5) Exposure to influenza SNOMED Code(s): 809024500 Code(s): Z20.828 - CONTACT W AND EXPOSURE TO OTH VIRAL COMMUNICABLE DISEASES Status: Acute Current Visit: Yes (6) Hypertension SNOMED Code(s): 15211058 Code(s): I10 - ESSENTIAL (PRIMARY) HYPERTENSION Status: Acute Current Visit: Yes (7) Dyslipidemia SNOMED Code(s): 499652961 Code(s): E78.5 - HYPERLIPIDEMIA, UNSPECIFIED Status: Acute Current Visit : Yes - Problem List Review Problem List Initiated/Reviewed/Updated: Yes - Plan Plan:: Mycoplasma pneumonia COPD exacerbation Acute hypoxemic respiratory failure Influenza vaccination up to date / Exposure to influenza Worsening shortness of breath and productive cough of white sputum-->SatO2 in ED 86%, PaO2 70 on ABG--Given DuoNebs, solumedrol in ED with minimal improvement 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 pneumo and respiratory panel testing - Continue Tamiflu 75mg BID and mycoplasma - Rt assessment and treat - Hold home nebs and inhalers Hypertension BP trend 161-178/60-72 On diltiazem, clonidine and HCTZ at home PLAN - Monitor BP - Continue home meds - PRN hydralazine PROPHYLAXIS DVT-antiembolic device GI- Not indicated CODE STATUS: FULL CODE DISPOSITION: Patient admitted on scheduled nebs, pending serologies for etiology and steroids. Significant interval improvement from yesterday. Discharge likely in the next 24-48 hours Lives at home with , independent.
[2019-07-16] MEDS: Azithromycin 250 MG Tab PO SCH (20:35)
[2019-07-17] MEDS: Albuterol/Ipratropium 3.0-0.5 MG/3 ML Neb Soln NEB SCH ×6 (03:07→21:39)
[2019-07-17] MEDS: Benzonatate 100 MG Cap PO SCH ×3 (08:36→20:51)
[2019-07-17] MEDS: guaiFENesin 600 MG Tab.ER PO SCH ×2 (08:36→20:51)
[2019-07-17] MEDS: Oseltamivir 75 MG Cap PO SCH (08:37)
[2019-07-17] MEDS: Hydrochlorothiazide 25 MG Tab **PTOM PO SCH (08:38)
[2019-07-17] MEDS: buPROPion 150 MG Tab.ER PO SCH (08:38)
[2019-07-17] MEDS: DILTIAZEM HCL 360 MG PO SCH (08:38)
[2019-07-17] MEDS: Aspirin 81 MG Tab.EC PO SCH (08:38)
[2019-07-17] MEDS: PREDNISONE 20 MG PO SCH (08:38)
[2019-07-17] MEDS: cloNIDine 0.1 MG Tab PO SCH (08:39)
[2019-07-17] MEDS: Budesonide 0.5 MG/2 ML Neb Susp NEB SCH ×2 (09:01→21:39)
[2019-07-17] MEDS ORDERED: Rosuvastatin 10 MG Tab PO SCH (14:44)
[2019-07-17] MEDS ORDERED: Hydrochlorothiazide 12.5 MG Cap PO SCH (14:44)
[2019-07-17] MEDS ORDERED: Diltiazem 180 MG Cap.CD PO SCH (14:45)
[2019-07-17] MEDS ORDERED: cloNIDine 0.1 MG Tab PO SCH (14:46)
[2019-07-17] MEDS ORDERED: predniSONE 20 MG Tab PO SCH (14:46)
[2019-07-17] MEDS ORDERED: Aspirin 81 MG Tab.EC PO SCH (14:47)
--- NOTE | 2019-07-17 16:44 | PCM.PN ---
- General Info Date of Service: 07/17/19 Subjective Update: Slept ok Tolerating diet Ambulating with assistance Still requiring O2 supplementation - Patient Data Vitals - Most Recent: Last Vital Signs Temp 98.2 F 07/17/19 16:03 Pulse 64 07/17/19 16:03 Resp 22 H 07/17/19 16:03 BP 118/98 H 07/17/19 16:03 Pulse Ox 93 L 07/17/19 16:03 Weight - Most Recent: 78.381 kg - Exam Quality Assessment: Supplemental Oxygen General: Alert, Oriented, Cooperative, No Acute Distress HEENT: Pupils Equal, Pupils Reactive, EOMI, Mucous Membr. Moist/[place] Neck: Supple, Trachea Midline, No JVD, No Thyromegaly Lungs: Normal Respiratory Effort, Crackles, Wheezing. No: Rales, Rhonchi, Rub Cardiovascular: Regular Rate, Regular Rhythm. No: Murmurs, Gallops, Rubs GI/Abdominal Exam: Normal Bowel Sounds, Soft, Non-Tender. No: Distended, Guarding, Rigid Back Exam: Normal Inspection. No: CVA Tenderness (L), CVA Tenderness (R) Extremities: Normal Inspection, Normal Range of Motion, Non-Tender, No Pedal Edema, Normal Capillary Refill Skin: Warm, Dry Neurological: No New Focal Deficit Psy/Mental Status: Alert Sepsis Event Note - Evaluation Sepsis Screening Result: No Definite Risk - Focused Exam Vital Signs: Vital Signs Temp Pulse Resp BP Pulse Ox Pulse Ox Pulse Ox 07/17/19 16:03 98.2 F 64 22 H 118/98 H 93 L 07/17/19 14:11 90 L 07/17/19 12:00 97.9 F 75 20 158/68 H 94 L 07/17/19 09:01 91 L 07/17/19 08:39 158/84 H 07/17/19 08:35 92 L 07/17/19 08:20 93 L 07/17/19 08:09 97.9 F 72 16 158/84 H 93 L 07/17/19 07:05 92 L Date Exam was Performed: 07/17/19 Time Exam was Performed: 16:39 - Problem List & Annotations (1) Mycoplasma pneumonia SNOMED Code(s): 56054732 Code(s): J15.7 - PNEUMONIA DUE TO MYCOPLASMA PNEUMONIAE Status: Acute Current Visit: Yes (2) Parainfluenza infection SNOMED Code(s): 89808247 Code(s): B34.8 - OTHER VIRAL INFECTIONS OF UNSPECIFIED SITE Status: Acute Current Visit: Yes (3) Acute hypoxemic respiratory failure SNOMED Code(s): 475159137 Code(s): J96.01 - ACUTE RESPIRATORY FAILURE WITH HYPOXIA Status: Acute Current Visit: Yes (4) COPD exacerbation SNOMED Code(s): 553895977 Code(s): J44.1 - CHRONIC OBSTRUCTIVE PULMONARY DISEASE W (ACUTE) EXACERBATION Status: Acute Current Visit: Yes (5) Community acquired pneumonia SNOMED Code(s): 757238802 Code(s): J18.9 - PNEUMONIA, UNSPECIFIED ORGANISM Status: Acute Current Visit: Yes (6) Exposure to influenza SNOMED Code(s): 728676694 Code(s): Z20.828 - CONTACT W AND EXPOSURE TO OTH VIRAL COMMUNICABLE DISEASES Status: Acute Current Visit: Yes (7) Hypertension SNOMED Code(s): 48048462 Code(s): I10 - ESSENTIAL (PRIMARY) HYPERTENSION Status: Acute Current Visit: Yes (8) Dyslipidemia SNOMED Code(s): 645788947 Code(s): E78.5 - HYPERLIPIDEMIA, UNSPECIFIED Status: Acute Current Visit : Yes - Problem List Review Problem List Initiated/Reviewed/Updated: Yes - Plan Plan:: Mycoplasma and Parainfluenza pneumonia COPD exacerbation Acute hypoxemic respiratory failure Influenza vaccination up to date / Exposure to influenza Worsening shortness of breath and productive cough of white sputum-->SatO2 in ED 86%, PaO2 70 on ABG--Given DuoNebs, solumedrol in ED with minimal improvement 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 pneumo and respiratory panel testing - Discontinue Tamiflu - Rt assessment and treat - Hold home nebs and inhalers Hypertension BP trend 106-144/50-99 On diltiazem, clonidine and HCTZ at home PLAN - Monitor BP - Continue home meds - PRN hydralazine PROPHYLAXIS DVT-antiembolic device GI- Not indicated CODE STATUS: FULL CODE DISPOSITION: Patient admitted on scheduled nebs, pending serologies for etiology and steroids. Significant interval improvement since admission. Discharge likely in the next 24-48 hours Lives at home with , independent.
[2019-07-17] MEDS: Azithromycin 250 MG Tab PO SCH (20:51)
[2019-07-18] MEDS: Albuterol/Ipratropium 3.0-0.5 MG/3 ML Neb Soln NEB SCH ×3 (01:11→09:00)
[2019-07-18] MEDS: Benzonatate 100 MG Cap PO SCH (08:26)
[2019-07-18] MEDS: guaiFENesin 600 MG Tab.ER PO SCH (08:27)
[2019-07-18 08:28] VITALS: BP 165/90
[2019-07-18 08:52] VITALS: PULSE 76
[2019-07-18] MEDS: Budesonide 0.5 MG/2 ML Neb Susp NEB SCH (09:00)
[2019-07-18] MEDS ORDERED: buPROPion 150 MG Tab.ER PO SCH (09:00)
--- NOTE | 2019-07-18 11:45 | PCM.DCSUM1 ---
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 Symptoms improved mildly but early this morning he started feeling exponentially worse for which he decided to come to the ED. Diagnosis: Stroke: No - Discharge Data Discharge Date: 07/18/19 Discharge Disposition: Home, Self-Care 01 Condition: Good - Referral to Home Health Primary Care Physician: Rosemary Carnes MD - Discharge Diagnosis/Problem(s) (1) Mycoplasma pneumonia SNOMED Code(s): 41308249 ICD Code: J15.7 - PNEUMONIA DUE TO MYCOPLASMA PNEUMONIAE Status: Acute (2) Parainfluenza infection SNOMED Code(s): 60886032 ICD Code: B34.8 - OTHER VIRAL INFECTIONS OF UNSPECIFIED SITE Status: Acute (3) Acute hypoxemic respiratory failure SNOMED Code(s): 518112627 ICD Code: J96.01 - ACUTE RESPIRATORY FAILURE WITH HYPOXIA Status: Acute (4) COPD exacerbation SNOMED Code(s): 949050542 ICD Code: J44.1 - CHRONIC OBSTRUCTIVE PULMONARY DISEASE W (ACUTE) EXACERBATION Status: Acute (5) Community acquired pneumonia SNOMED Code(s): 272000378 ICD Code: J18.9 - PNEUMONIA, UNSPECIFIED ORGANISM Status: Acute (6) Exposure to influenza SNOMED Code(s): 444368413 ICD Code: Z20.828 - CONTACT W AND EXPOSURE TO OTH VIRAL COMMUNICABLE DISEASES Status: Acute (7) Hypertension SNOMED Code(s): 43082314 ICD Code: I10 - ESSENTIAL (PRIMARY) HYPERTENSION Status: Acute (8) Dyslipidemia SNOMED Code(s): 870289968 ICD Code: E78.5 - HYPERLIPIDEMIA, UNSPECIFIED Status: Acute - Patient Summary/Data Consults: Consultations 07/15/19 16:13 Respiratory Care Assess and Treatment [CONS] Routine Hospital Course: Patient was admitted on scheduled nebs treatments, serology was ordered for mycoplasma, step. pneumonia and respiratory panel. Lab work came back positive for mycoplasma and parainfluenza. Patient was started on azithromycin. Since the patient was seen in the ED he was hypoxemic, he was placed on nasal cannula, continuous nasal cannula was able to be weaned off but patient still required 2L upon exertion which is was he was discharged on. He was discharged to complete 5 days of azithromycin, scheduled nebs, prednisone , benzonatate and guaifenesin. 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 - Discharge Plan *PRESCRIPTION DRUG MONITORING PROGRAM REVIEWED*: No *COPY OF PRESCRIPTION DRUG MONITORING REPORT IN PATIENT JULIUS: No Prescriptions/Med Rec: Albuterol/Ipratropium [DuoNeb 3.0-0.5 MG/3 ML] 3 ml NEB Q4HRRT #20 neb Albuterol/Ipratropium [DuoNeb 3.0-0.5 MG/3 ML] 3 ml NEB Q4HRRT #20 neb Budesonide [Pulmicort] 0.5 mg NEB Q12HR #10 neb Budesonide [Pulmicort] 0.5 mg NEB [id number] #12 neb Azithromycin [Zithromax] 500 mg PO BEDTIME #4 tablet Benzonatate 100 mg PO TID #15 capsule guaiFENesin [Mucinex] 600 mg PO BID #10 tab.er predniSONE 40 mg PO DAILY #6 tablet Home Medications: Home Meds Aspirin [Halfprin] 81 mg PO DAILY 10/22/16 [History] Budesonide/Formoterol Fumarate [Symbicort 160-4.5 Mcg Inhaler] 2 puff INH BID [History] Diltiazem HCl [Diltiazem 24Hr ER] 360 mg PO DAILY 10/22/16 [History] Hydrochlorothiazide 12.5 mg PO DAILY 10/22/16 [History] Ipratropium/Albuterol Sulfate [IJD: DuoNeb 3.0-0.5 MG/3 ML] 1 inhalation NEB Q6H PRN 10/22/16 [History] buPROPion HCl [Wellbutrin Xl] 150 mg PO DAILY 10/22/16 [History] cloNIDine HCL [Clonidine HCl] 0.1 mg PO DAILY 10/22/16 [History] B2/Vits A,C,E/Lut/Zeaxanth/Min [Icaps] 1 each PO DAILY 07/15/19 [History] Rosuvastatin Calcium 10 mg PO BEDTIME 07/15/19 [History] Albuterol/Ipratropium [DuoNeb 3.0-0.5 MG/3 ML] 3 ml NEB Q4HRRT #20 neb 07/18/19 [Rx] Albuterol/Ipratropium [DuoNeb 3.0-0.5 MG/3 ML] 3 ml NEB Q4HRRT #20 neb 07/18/19 [Rx] Azithromycin [Zithromax] 500 mg PO BEDTIME #4 tablet 07/18/19 [Rx] Benzonatate 100 mg PO TID #15 capsule 07/18/19 [Rx] Budesonide [Pulmicort] 0.5 mg NEB Q12HR #10 neb 07/18/19 [Rx] Budesonide [Pulmicort] 0.5 mg NEB [id number] #12 neb 07/18/19 [Rx] guaiFENesin [Mucinex] 600 mg PO BID #10 tab.er 07/18/19 [Rx] predniSONE 40 mg PO DAILY #6 tablet 07/18/19 [Rx] Oxygen Therapy Mode: Nasal Cannula Oxygen Flow Rate (L/min): 2 (with activity) Patient Handouts: Viral Respiratory Infection, Community-Acquired Pneumonia, Adult Referrals: Rosemary Carnes MD [Primary Care Provider] - (Call clinic on Saturday to make an appointment to follow-up with in 1 week.) Starla Ha MD [Physician] - (Patient see's once a year for annual check up through the [facility]) - Discharge Summary/Plan Comment DC Time >30 min.: Yes - General Info Date of Service: 07/18/19 Subjective Update: feeling ok Slept OK Tolerating diet Ambulating BM today - Patient Data Vitals - Most Recent: Last Vital Signs Temp 97.9 F 07/18/19 07:51 Pulse 76 07/18/19 07:51 Resp 20 07/18/19 07:51 BP 165/90 H 07/18/19 08:27 Pulse Ox 90 L 07/18/19 09:00 Weight - Most Recent: 78.018 kg - Exam General: Reports: Alert, Oriented, Cooperative, No Acute Distress HEENT: Reports: Pupils Equal, Pupils Reactive, EOMI, Mucous Membr. Moist/[place] Neck: Reports: Supple, Trachea Midline Lungs: Reports: Clear to Auscultation, Normal Respiratory Effort, Wheezing. Denies: Crackles, Rales, Rhonchi Cardiovascular: Reports: Regular Rate, Regular Rhythm. Denies: Murmurs, Gallops , Rubs GI/Abdominal Exam: Normal Bowel Sounds, Soft, Non-Tender. No: Distended, Guarding, Rigid Back Exam: Reports: Normal Inspection, Full Range of Motion. Denies: CVA Tenderness (L), CVA Tenderness (R) Extremities: Normal Inspection, Normal Range of Motion, Non-Tender, No Pedal Edema, Normal Capillary Refill
== END 2019-07-18 12:05 | disposition home or self-care (01) | DRG 193 ==
LOC: JD.ED 12:23 → SUPCPDRO 12:23 → JD.MS 16:14 → OBSVTOIN 07-17 13:43 → JD.MS 07-17 16:44
PROVIDERS: ADMIT Internal Medicine; ATTEND Internal Medicine
DX: A41.9 Sepsis, unspecified organism (principal); J15.7 Pneumonia due to Mycoplasma pneumoniae; J96.01 Acute respiratory failure with hypoxia; J44.0 Chronic obstructive pulmonary disease with (acute) lower respiratory infection; J44.1 Chronic obstructive pulmonary disease with (acute) exacerbation; I10 Essential (primary) hypertension; E87.2 Acidosis; H54.7 Unspecified visual loss; E78.5 Hyperlipidemia, unspecified; G89.29 Other chronic pain; M54.9 Dorsalgia, unspecified; R32 Unspecified urinary incontinence; E78.00 Pure hypercholesterolemia, unspecified; G47.30 Sleep apnea, unspecified; B34.8 Other viral infections of unspecified site; Z79.51 Long term (current) use of inhaled steroids; Z79.82 Long term (current) use of aspirin; Z78.9 Other specified health status; Z98.49 Cataract extraction status, unspecified eye; Z79.52 Long term (current) use of systemic steroids; Z79.899 Other long term (current) drug therapy; Z87.891 Personal history of nicotine dependence
CPT/HCPCS: 36415 ×2; 36600; 71045; 80048; 80053; 81001; 82306; 82803; 83605; 83735; 83880; 84100; 84145; 84484; 85025 ×2; 86738; 87040 ×2; 87486; 87581; 87632; 87798; 87804 ×2; 87899; 93005; 94640 ×11; 94667; 94668 ×5; 94761 ×2; A9270 ×31; J1956; J2930; 96365; 96375; 99219; 99224; 99231; 99239; 99284; 99285-25; G0378; J7620-GY

== ENCOUNTER 2020-04-24 10:04 | Emergency (ER) | payer MEDICARE, BC, OTHER ==
[2020-04-24 10:20] VITALS: BP 159/66; PULSE 70
[2020-04-24] MEDS ORDERED: Sodium Chloride 0.9% 10 ML Syringe FLUSH PRN (10:44)
--- NOTE | 2020-04-24 11:54 | EDM.PDOC ---
ED HPI GENERAL MEDICAL PROBLEM - General Chief Complaint: Respiratory Problem Stated Complaint: DIFFICULTY BREATHING LOW O2 AND FEVER Time Seen by Provider: 04/24/20 10:20 Source of Information: Reports: Patient History Limitations: Reports: No Limitations - History of Present Illness INITIAL COMMENTS - FREE TEXT/NARRATIVE: The patient presents for a cough and shortness of breath. This started this morning. He has no fever or chills. The cough is productive. He has no abdominal pain, nausea or vomiting. He has COPD and he is on oxygen at home. He is on a few medications for his COPD. He has not been around any one with the COVID 19 virus. He still has a sense of taste and smell. He has no chest pain. Onset: Gradual Duration: Hour(s): Severity: Moderate Improves with: Reports: None Worsens with: Reports: None Associated Symptoms: Reports: Cough, Shortness of Breath. Denies: Fever/Chills, Headaches, Nausea/Vomiting - Related Data Allergies Allergy/AdvReac Type Severity Reaction Status Date / Time No Known Allergies Allergy Verified 07/15/19 18:40 Home Meds: Home Meds Aspirin [Halfprin] 81 mg PO DAILY 10/22/16 [History] Budesonide/Formoterol Fumarate [Symbicort 160-4.5 Mcg Inhaler] 2 puff INH BID 10/22/16 [History] Hydrochlorothiazide 12.5 mg PO DAILY 10/22/16 [History] Ipratropium/Albuterol Sulfate [IJD: DuoNeb 3.0-0.5 MG/3 ML] 1 inhalation NEB Q6H PRN 10/22/16 [History] buPROPion HCL [Wellbutrin Xl] 150 mg PO DAILY 10/22/16 [History] cloNIDine HCL [Clonidine HCl] 0.1 mg PO DAILY 10/22/16 [History] dilTIAZem HCL [Diltiazem 24Hr ER] 360 mg PO DAILY 10/22/16 [History] B2/Vits A,C,E/Lut/Zeaxanth/Min [Icaps] 1 each PO DAILY 07/15/19 [History] Rosuvastatin Calcium 10 mg PO BEDTIME 07/15/19 [History] Albuterol/Ipratropium [DuoNeb 3.0-0.5 MG/3 ML] 3 ml NEB Q4HRRT #20 neb 07/18/19 [Rx] Albuterol/Ipratropium [DuoNeb 3.0-0.5 MG/3 ML] 3 ml NEB Q4HRRT #20 neb 07/18/19 [Rx] Azithromycin [Zithromax] 500 mg PO BEDTIME #4 tablet 07/18/19 [Rx] Benzonatate 100 mg PO TID #15 capsule 07/18/19 [Rx] Budesonide [Pulmicort] 0.5 mg NEB Q12HR #10 neb 07/18/19 [Rx] Budesonide [Pulmicort] 0.5 mg NEB [id number] #12 neb 07/18/19 [Rx] guaiFENesin [Mucinex] 600 mg PO BID #10 tab.er 07/18/19 [Rx] predniSONE 40 mg PO DAILY #6 tablet 07/18/19 [Rx] Amoxicillin/Clavulanate K [Augmentin 875-125 MG] 1 tab PO BID #14 tablet 04/24/20 [Rx] Azithromycin [Zithromax] 250 mg PO DAILY #6 tab 04/24/20 [Rx] Past Medical History HEENT History: Reports: Cataract, Epistaxis, Impaired Vision Other HEENT History: Partial lower dentures. wears glasses Cardiovascular History: Reports: High Cholesterol, Hypertension Respiratory History: Reports: Bronchitis, Recurrent, COPD, Sleep Apnea Other Respiratory History: wear cpap at night Gastrointestinal History: Reports: None Genitourinary History: Reports: Urinary Incontinence Musculoskeletal History: Reports: Back Pain, Chronic Psychiatric History: Reports: None Endocrine/Metabolic History: Reports: None Hematologic History: Reports: None Immunologic History: Reports: None Oncologic (Cancer) History: Reports: None Dermatologic History: Reports: None - Infectious Disease History Infectious Disease History: Reports: Chicken Pox, Measles, Mumps - Past Surgical History HEENT Surgical History: Reports: Cataract Surgery Cardiovascular Surgical History: Reports: None Respiratory Surgical History: Reports: None GI Surgical History: Reports: Colonoscopy Neurological Surgical History: Reports: Lumbar Spine Musculoskeletal Surgical History: Reports: Shoulder Surgery, Other (See Below) Other Musculoskeletal Surgeries/Procedures:: Cyst removed from back Social & Family History - Family History Family Medical History: Noncontributory - Tobacco Use Tobacco Use Status *Q: Current Every Day Tobacco User Years of Tobacco use: 30 Packs/Tins Daily: 0.5 - Caffeine Use Caffeine Use: Reports: Coffee Other Caffeine Use: decaff ED ROS GENERAL - Review of Systems Review Of Systems: See Below Constitutional: Reports: No Symptoms HEENT: Reports: No Symptoms Respiratory: Reports: Shortness of Breath, Cough Cardiovascular: Reports: No Symptoms Endocrine: Reports: No Symptoms GI/Abdominal: Reports: No Symptoms : Reports: No Symptoms Musculoskeletal: Reports: No Symptoms ED EXAM, GENERAL - Physical Exam Exam: See Below Exam Limited By: No Limitations General Appearance: Alert, No Apparent Distress Ears: Normal External Exam Nose: Normal Inspection Head: Atraumatic, Normocephalic Neck: Normal Inspection Respiratory/Chest: No Respiratory Distress, Decreased Breath Sounds, Rhonchi Cardiovascular: Regular Rate, Rhythm, No Edema, No Murmur GI/Abdominal: Soft, Non-Tender, No Organomegaly, No Mass Back Exam: Normal Inspection Extremities: Normal Inspection Course - Vital Signs Last Recorded V/S: Last Vital Signs Temp 99.4 F 04/24/20 10:17 Pulse 70 04/24/20 10:17 Resp 20 04/24/20 10:17 BP 159/66 H 04/24/20 10:17 Pulse Ox 94 L 04/24/20 10:17 - Orders/Labs/Meds Orders: Active Orders 24 hr Category Date Time Status Cardiac Monitoring [RC] . DIRECTED Care 04/24/20 10:44 Active Oxygen Therapy [RC] PRN Care 04/24/20 10:44 Active Peripheral IV Care [RC] . DIRECTED Care 04/24/20 10:45 Active Chest 1V Frontal [CR] Stat Exams 04/24/20 10:45 Taken CULTURE BLOOD [BC] Stat Lab 04/24/20 11:05 Received CULTURE BLOOD [BC] Stat Lab 04/24/20 11:19 Received Sodium Chloride 0.9% [Saline Flush] Med 04/24/20 10:44 Active 10 ml FLUSH ASDIRECTED PRN Blood Culture x2 Reflex Set [OM.PC] Stat Oth 04/24/20 10:45 Ordered Peripheral IV Insertion Adult [OM.PC] Stat Oth 04/24/20 10:44 Ordered Medication Orders Sodium Chloride (Saline Flush) 10 ml FLUSH ASDIRECTED PRN PRN Reason: Keep Vein Open Last Admin: 04/24/20 11:12 Dose: 10 ml Documented by: ABY Labs: Laboratory Tests 04/24/20 04/24/20 04/24/20 Range/Units 10:55 11:05 11:05 WBC 18.55 H (4.23-9.07) K/mm3 RBC 4.59 L (4.63-6.08) M/mm3 Hgb 13.9 (13.7-17.5) gm/dl Hct 41.8 (40.1-51.0) % MCV 91.1 D (79.0-92.2) fl MCH 30.3 (25.7-32.2) pg MCHC 33.3 (32.2-35.5) g/dl RDW Std Deviation 46.9 H (35.1-43.9) fL Plt Count 417 H D (163-337) K/mm3 MPV 8.5 L (9.4-12.3) fl Neut % (Auto) 77.9 H (34.0-67.9) % Lymph % (Auto) 8.8 L (21.8-53.1) % Jay % (Auto) 11.6 (5.3-12.2) % Eos % (Auto) 1.2 (0.8-7.0) Baso % (Auto) 0.2 (0.1-1.2) % Neut # (Auto) 14.45 H (1.78-5.38) K/mm3 Lymph # (Auto) 1.64 (1.32-3.57) K/mm3 Jay # (Auto) 2.15 H (0.30-0.82) K/mm3 Eos # (Auto) 0.22 (0.04-0.54) K/mm3 Baso # (Auto) 0.03 (0.01-0.08) K/mm3 Manual Slide Review Abnormal smear PT 10.3 (9.7-12.0) SECONDS INR 0.96 APTT 27.1 (21.7-31.4) SECONDS D-Dimer, Quantitative 0.54 H (0.19-0.50) mg/L Puncture Site Lt radial ABG pH 7.45 (7.35-7.45) ABG pCO2 37.3 (35.0-45.0) mmHg ABG pO2 72.0 L (80.0-100.0) mmHg ABG HCO3 25.6 (22.0-26.0) meq/L ABG O2 Saturation 94.8 L (96.0-97.0) % ABG Base Excess 2.2 H (-2-2.0) Clayton Test Positive O2 Delivery Device Nasal cannula Oxygen Flow Rate 1.5 FiO2 0.26 L (21.00-100.00) % Sodium (136-145) mEq/L Potassium (3.5-5.1) mEq/L Chloride (98-107) mEq/L Carbon Dioxide (21-32) mEq/L Anion Gap (5-15) BUN (7-18) mg/dL Creatinine (0.7-1.3) mg/dL Est Cr Clr Drug Dosing mL/min Estimated GFR (MDRD) (>60) mL/min BUN/Creatinine Ratio (14-18) Glucose (83-115) mg/dL Lactic Acid (0.4-2.0) mmol/L Calcium (8.5-10.1) mg/dL Ferritin (26-388) ng/ml Total Bilirubin (0.2-1.0) mg/dL AST (15-37) U/L ALT (16-63) U/L Alkaline Phosphatase (46-116) U/L Lactate Dehydrogenase (85-227) U/L C-Reactive Protein (<1.0) mg/dL Total Protein (6.4-8.2) g/dl Albumin (3.4-5.0) g/dl Globulin gm/dL Albumin/Globulin Ratio (1-2) SARS-CoV-2 RNA (MICHELLE) (NEGATIVE) 04/24/20 04/24/20 04/24/20 Range/Units 11:05 11:05 11:05 WBC (4.23-9.07) K/mm3 RBC (4.63-6.08) M/mm3 Hgb (13.7-17.5) gm/dl Hct (40.1-51.0) % MCV (79.0-92.2) fl MCH (25.7-32.2) pg MCHC (32.2-35.5) g/dl RDW Std Deviation (35.1-43.9) fL Plt Count (163-337) K/mm3 MPV (9.4-12.3) fl Neut % (Auto) (34.0-67.9) % Lymph % (Auto) (21.8-53.1) % Jay % (Auto) (5.3-12.2) % Eos % (Auto) (0.8-7.0) Baso % (Auto) (0.1-1.2) % Neut # (Auto) (1.78-5.38) K/mm3 Lymph # (Auto) (1.32-3.57) K/mm3 Jay # (Auto) (0.30-0.82) K/mm3 Eos # (Auto) (0.04-0.54) K/mm3 Baso # (Auto) (0.01-0.08) K/mm3 Manual Slide Review PT (9.7-12.0) SECONDS INR APTT (21.7-31.4) SECONDS D-Dimer, Quantitative (0.19-0.50) mg/L Puncture Site ABG pH (7.35-7.45) ABG pCO2 (35.0-45.0) mmHg ABG pO2 (80.0-100.0) mmHg ABG HCO3 (22.0-26.0) meq/L ABG O2 Saturation (96.0-97.0) % ABG Base Excess (-2-2.0) Clayton Test O2 Delivery Device Oxygen Flow Rate FiO2 (21.00-100.00) % Sodium 135 L (136-145) mEq/L Potassium 3.6 (3.5-5.1) mEq/L Chloride 97 L (98-107) mEq/L Carbon Dioxide 28 (21-32) mEq/L Anion Gap 13.6 (5-15) BUN 20 H (7-18) mg/dL Creatinine 1.1 (0.7-1.3) mg/dL Est Cr Clr Drug Dosing 53.17 mL/min Estimated GFR (MDRD) > 60 (>60) mL/min BUN/Creatinine Ratio 18.2 H (14-18) Glucose 97 (83-115) mg/dL Lactic Acid 1.2 (0.4-2.0) mmol/L Calcium 9.5 (8.5-10.1) mg/dL Ferritin (26-388) ng/ml Total Bilirubin 0.4 (0.2-1.0) mg/dL AST 9 L (15-37) U/L ALT 19 (16-63) U/L Alkaline Phosphatase 85 (46-116) U/L Lactate Dehydrogenase 163 (85-227) U/L C-Reactive Protein 5.1 H* (<1.0) mg/dL Total Protein 7.7 (6.4-8.2) g/dl Albumin 3.7 (3.4-5.0) g/dl Globulin 4.0 gm/dL Albumin/Globulin Ratio 0.9 L (1-2) SARS-CoV-2 RNA (MICHELLE) Negative (NEGATIVE) 04/24/20 Range/Units 11:05 WBC (4.23-9.07) K/mm3 RBC (4.63-6.08) M/mm3 Hgb (13.7-17.5) gm/dl Hct (40.1-51.0) % MCV (79.0-92.2) fl MCH (25.7-32.2) pg MCHC (32.2-35.5) g/dl RDW Std Deviation (35.1-43.9) fL Plt Count (163-337) K/mm3 MPV (9.4-12.3) fl Neut % (Auto) (34.0-67.9) % Lymph % (Auto) (21.8-53.1) % Jay % (Auto) (5.3-12.2) % Eos % (Auto) (0.8-7.0) Baso % (Auto) (0.1-1.2) % Neut # (Auto) (1.78-5.38) K/mm3 Lymph # (Auto) (1.32-3.57) K/mm3 Jay # (Auto) (0.30-0.82) K/mm3 Eos # (Auto) (0.04-0.54) K/mm3 Baso # (Auto) (0.01-0.08) K/mm3 Manual Slide Review PT (9.7-12.0) SECONDS INR APTT (21.7-31.4) SECONDS D-Dimer, Quantitative (0.19-0.50) mg/L Puncture Site ABG pH (7.35-7.45) ABG pCO2 (35.0-45.0) mmHg ABG pO2 (80.0-100.0) mmHg ABG HCO3 (22.0-26.0) meq/L ABG O2 Saturation (96.0-97.0) % ABG Base Excess (-2-2.0) Clayton Test O2 Delivery Device Oxygen Flow Rate FiO2 (21.00-100.00) % Sodium (136-145) mEq/L Potassium (3.5-5.1) mEq/L Chloride (98-107) mEq/L Carbon Dioxide (21-32) mEq/L Anion Gap (5-15) BUN (7-18) mg/dL Creatinine (0.7-1.3) mg/dL Est Cr Clr Drug Dosing mL/min Estimated GFR (MDRD) (>60) mL/min BUN/Creatinine Ratio (14-18) Glucose (83-115) mg/dL Lactic Acid (0.4-2.0) mmol/L Calcium (8.5-10.1) mg/dL Ferritin 210 (26-388) ng/ml Total Bilirubin (0.2-1.0) mg/dL AST (15-37) U/L ALT (16-63) U/L Alkaline Phosphatase (46-116) U/L Lactate Dehydrogenase (85-227) U/L C-Reactive Protein (<1.0) mg/dL Total Protein (6.4-8.2) g/dl Albumin (3.4-5.0) g/dl Globulin gm/dL Albumin/Globulin Ratio (1-2) SARS-CoV-2 RNA (MICHELLE) (NEGATIVE) Meds: Medications Generic Name Dose Route Start Last Admin Trade Name Freq PRN Reason Stop Dose Admin Sodium Chloride 10 ml 04/24/20 10:44 04/24/20 11:12 Saline Flush FLUSH 10 ml ASDIRECTED PRN Administration Keep Vein Open - Re-Assessments/Exams Free Text/Narrative Re-Assessment/Exam: 04/24/20 11:58 I ordered oxygen, IV saline lock, labs, ABG, CXR and COVID 19 test. 04/24/20 11:59 His WBC was elevated at 18.55. His platelets were elevated at 417. His D-dimer was slightly elevated at 0.54. His pH was normal at 7.45. His pCO2 was normal at 37.3. His pO2 is low at 72. His CXR shows patchy density in the left lower lobe. Pneumonia and atelectasis are possible. I am waiting on his COVID and the rest of his labs. 04/24/20 12:41 His Na is 135. His CRP is elevated at 5.1. His COVID is negative. His is on prednisone and that is why his WBC is elevated. He has a small area of pneumonia. I will get him on some augmentin and azithromycin. Departure - Departure Time of Disposition: 12:45 Disposition: Home, Self-Care 01 Condition: Good Clinical Impression: COPD (chronic obstructive pulmonary disease) Qualifiers: COPD type: unspecified COPD Qualified Code(s): J44.9 - Chronic obstructive pulmonary disease, unspecified Pneumonia Qualifiers: Pneumonia type: due to unspecified organism Laterality: left Lung location: lower lobe of lung Qualified Code(s): J18.9 - Pneumonia, unspecified organism - Discharge Information *PRESCRIPTION DRUG MONITORING PROGRAM REVIEWED*: Not Applicable *COPY OF PRESCRIPTION DRUG MONITORING REPORT IN PATIENT JULIUS: Not Applicable Prescriptions: Amoxicillin/Clavulanate K [Augmentin 875-125 MG] 1 tab PO BID #14 tablet Azithromycin [Zithromax] 250 mg PO DAILY #6 tab Referrals: Liyah Henry HOTBED TRANSFER OPERATOR [Primary Care Provider] - 1 Week Forms: ED Department Discharge Additional Instructions: Keep taking your medications and using your inhalers. Take the augmentin 2 times per day for 7 days. Take the azithromycin 2 pills today and then 1 pill day for 4 days. Please return if you are worse. Sepsis Event Note (ED) - Evaluation Sepsis Screening Result: No Definite Risk - Focused Exam Vital Signs: Vital Signs Temp Pulse Resp BP Pulse Ox 04/24/20 10:17 99.4 F 70 20 159/66 H 94 L - My Orders Last 24 Hours: My Active Orders 04/24/20 10:44 Cardiac Monitoring [RC] . DIRECTED Oxygen Therapy [RC] PRN Sodium Chloride 0.9% [Saline Flush] 10 ml FLUSH ASDIRECTED PRN Peripheral IV Insertion Adult [OM.PC] Stat 04/24/20 10:45 Peripheral IV Care [RC] . DIRECTED Chest 1V Frontal [CR] Stat Blood Culture x2 Reflex Set [OM.PC] Stat 04/24/20 11:05 CULTURE BLOOD [BC] Stat 04/24/20 11:19 CULTURE BLOOD [BC] Stat - Assessment/Plan Last 24 Hours: My Active Orders 04/24/20 10:44 Cardiac Monitoring [RC] . DIRECTED Oxygen Therapy [RC] PRN Sodium Chloride 0.9% [Saline Flush] 10 ml FLUSH ASDIRECTED PRN Peripheral IV Insertion Adult [OM.PC] Stat 04/24/20 10:45 Peripheral IV Care [RC] . DIRECTED Chest 1V Frontal [CR] Stat Blood Culture x2 Reflex Set [OM.PC] Stat 04/24/20 11:05 CULTURE BLOOD [BC] Stat 04/24/20 11:19 CULTURE BLOOD [BC] Stat
--- NOTE | 2020-04-25 10:08 | CR ---
PROCEDURE INFORMATION: Exam: XR Chest, 1 View Exam date and time: 04/24/2020 10:35 AM Age: 74 years old Clinical indication: Chest pain; Type not specified; Patient HX: I attached the prior chest xray report to the current images. TECHNIQUE: Imaging protocol: XR of the chest Views: 1 view. COMPARISON: CR Chest 1V Frontal 07/15/2019 12:42 PM FINDINGS: Lungs: Minimal patchy density is present within the left lower lobe. In the appropriate clinical setting, pneumonia is possible. There is no pulmonary edema. Pleural space: Unremarkable. No pleural effusion. No pneumothorax. Heart/Mediastinum: Unremarkable. No cardiomegaly. Bones/joints: Unremarkable. IMPRESSION: Patchy density in the left lower lobe. Pneumonia and atelectasis are possible. Thank you for allowing us to participate in the care of your patient. Dictated and Authenticated by: Donald Funez MD 04/24/2020 12:10 PM Central Time ([place] & [place]) [facility]
== END 2020-04-24 13:55 | disposition home or self-care (01) ==
LOC: JD.ED 10:04
DX: J18.9 Pneumonia, unspecified organism (principal); J44.9 Chronic obstructive pulmonary disease, unspecified; R79.89 Other specified abnormal findings of blood chemistry; Z20.828 Contact with and (suspected) exposure to other viral communicable diseases; I10 Essential (primary) hypertension; E78.00 Pure hypercholesterolemia, unspecified; F17.210 Nicotine dependence, cigarettes, uncomplicated; Z79.82 Long term (current) use of aspirin; Z79.899 Other long term (current) drug therapy
CPT/HCPCS: 36415; 36600; 71045; 80053; 82728; 82803; 83605; 83615; 85025; 85379; 85610; 85730; 86140; 87040; 99285; U0002

== ENCOUNTER 2022-05-02 05:45 | Emergency (ER) | payer MEDICARE, BC ==
[2022-05-02 06:09] VITALS: BP 124/81; PULSE 76
== END 2022-05-02 06:53 | disposition home or self-care (01) ==
LOC: JD.ED 05:45
DX: R04.0 Epistaxis (principal); E78.00 Pure hypercholesterolemia, unspecified; I10 Essential (primary) hypertension; J44.9 Chronic obstructive pulmonary disease, unspecified; Z87.891 Personal history of nicotine dependence; Z79.82 Long term (current) use of aspirin; Z79.899 Other long term (current) drug therapy
CPT/HCPCS: 99283

== ENCOUNTER 2022-09-11 13:19 | Inpatient (IN) | payer MEDICARE, BC ==
[2022-09-11] MEDS ORDERED: Sodium Chloride 0.9% 10 ML Syringe FLUSH PRN (13:52)
[2022-09-11] MEDS ORDERED: Sodium Chloride 0.9% 1,000 ML IV STA (15:08)
[2022-09-11] MEDS ORDERED: Sodium Polystyrene Sulfonate 15 GM/60 ML Susp 60 ML Bot PO ONE (16:57)
[2022-09-11] MEDS: Heparin Sodium 5,000 Units/ML Vial SUBCUT SCH (18:57)
[2022-09-11] MEDS: hydrALAZINE 25 MG Tab PO SCH (18:57)
[2022-09-11] MEDS ORDERED: Budesonide 0.5 MG/2 ML Neb Susp NEB SCH (20:00)
[2022-09-11] MEDS ORDERED: Rosuvastatin 10 MG Tab PO SCH (21:00)
[2022-09-11] MEDS: Doxazosin 2 MG Tab PO SCH (21:10)
[2022-09-12] MEDS: hydrALAZINE 25 MG Tab PO SCH ×3 (00:30→18:04)
[2022-09-12] MEDS: Heparin Sodium 5,000 Units/ML Vial SUBCUT SCH ×3 (02:24→18:04)
[2022-09-12] MEDS: Budesonide 0.5 MG/2 ML Neb Susp NEB SCH ×2 (08:20→20:51)
[2022-09-12] MEDS: Albuterol 0.083% 2.5 MG/3 ML Neb Soln NEB PRN ×3 (08:20→20:50)
[2022-09-12] MEDS: UMECLIDINIUM BROMIDE 62.5 MCG INH SCH (08:20)
[2022-09-12] MEDS ORDERED: Non-Formulary Medication 1 Each (Umeclidinium Bromide 62.5 MCG Blst.W.Dev) INH SCH (09:00)
[2022-09-12] MEDS ORDERED: Non-Formulary Medication 1 Each (Doxazosin 1 MG Tablet) PO SCH (09:00)
[2022-09-12] MEDS ORDERED: Tiotropium Bromide 4 GM Inhalation Spray (2.5mcg/1 dose; 10 doses) INH SCH (09:00)
[2022-09-12] MEDS ORDERED: Hydrochlorothiazide 25 MG Tab PO SCH (09:00)
[2022-09-12] MEDS: Rosuvastatin 10 MG Tab PO SCH (09:43)
[2022-09-12] MEDS: Carboxymethylcellulose Sodium 1% Ophth Gel 15 ML Bottle EYEBOTH SCH (09:43)
[2022-09-12] MEDS: Sodium Chloride 0.65% Nasal Spray 45 ML Bottle NASBOTH SCH (09:43)
[2022-09-12] MEDS: Aspirin 81 MG Tab.EC PO SCH (09:46)
[2022-09-12] MEDS: buPROPion 150 MG Tab.ER PO SCH (09:46)
[2022-09-12] MEDS: Doxazosin 2 MG Tab PO SCH ×2 (09:47→20:41)
[2022-09-12] MEDS: Enalapril 5 MG Tab PO SCH (09:47)
[2022-09-12] MEDS ORDERED: Albuterol 6.7 GM Inhaler INH PRN (15:57)
[2022-09-13] MEDS: hydrALAZINE 25 MG Tab PO SCH ×2 (00:55→08:43)
[2022-09-13] MEDS: Heparin Sodium 5,000 Units/ML Vial SUBCUT SCH (03:21)
[2022-09-13] MEDS: Albuterol 0.083% 2.5 MG/3 ML Neb Soln NEB PRN (08:18)
[2022-09-13] MEDS: Budesonide 0.5 MG/2 ML Neb Susp NEB SCH (08:19)
[2022-09-13] MEDS: UMECLIDINIUM BROMIDE 62.5 MCG INH SCH (08:19)
[2022-09-13 08:25] VITALS: BP 157/102; PULSE 64
[2022-09-13] MEDS: buPROPion 150 MG Tab.ER PO SCH (08:48)
[2022-09-13] MEDS: Aspirin 81 MG Tab.EC PO SCH (08:49)
[2022-09-13] MEDS: Rosuvastatin 10 MG Tab PO SCH (08:49)
[2022-09-13] MEDS: Doxazosin 2 MG Tab PO SCH (08:49)
[2022-09-13] MEDS: Carboxymethylcellulose Sodium 1% Ophth Gel 15 ML Bottle EYEBOTH SCH (08:50)
[2022-09-13] MEDS: Sodium Chloride 0.65% Nasal Spray 45 ML Bottle NASBOTH SCH (08:50)
[2022-09-13] MEDS: Enalapril 5 MG Tab PO SCH (08:50)
== END 2022-09-13 09:45 | disposition home or self-care (01) | DRG 310 ==
LOC: JD.ED 13:19 → JD.MS 15:38
PROVIDERS: ADMIT Internal Medicine Cardiovascular Disease; ATTEND Internal Medicine Cardiovascular Disease
DX: R00.1 Bradycardia, unspecified (principal); I48.0 Paroxysmal atrial fibrillation; E87.5 Hyperkalemia; Z79.82 Long term (current) use of aspirin; Z79.899 Other long term (current) drug therapy; Z98.890 Other specified postprocedural states; E78.00 Pure hypercholesterolemia, unspecified; I10 Essential (primary) hypertension; J44.9 Chronic obstructive pulmonary disease, unspecified; G89.29 Other chronic pain; M54.9 Dorsalgia, unspecified; E11.9 Type 2 diabetes mellitus without complications; E66.9 Obesity, unspecified; Z68.30 Body mass index [BMI] 30.0-30.9, adult; Z98.49 Cataract extraction status, unspecified eye; Z87.891 Personal history of nicotine dependence; G47.33 Obstructive sleep apnea (adult) (pediatric); N40.0 Benign prostatic hyperplasia without lower urinary tract symptoms; Z88.8 Allergy status to other drugs, medicaments and biological substances; Z20.822 Contact with and (suspected) exposure to COVID-19; T46.1X5A Adverse effect of calcium-channel blockers, initial encounter; T46.5X5A Adverse effect of other antihypertensive drugs, initial encounter; N41.9 Inflammatory disease of prostate, unspecified
CPT/HCPCS: 36415; 71045; 71045-26; 80048; 80053; 81001; 83735; 83880; 84484; 85025; 93005; 93010; 93306; 94640; 94760; 94761; 99221; 99231; 99239; 99284; A9270-GY; J1644; J3490; J7030; J7620-GY; U0002

== ENCOUNTER 2023-06-18 12:11 | Emergency (ER) | payer MEDICARE, BC ==
[2023-06-18 12:26] VITALS: BP 156/59; PULSE 88
[2023-06-18] MEDS ORDERED: Sodium Chloride 0.9% 250 ML IV SCH (12:45)
[2023-06-18] MEDS ORDERED: Lidocaine 1% 10 ML MDV INJECT ONE (12:46)
[2023-06-18 12:51] LABS: BASOPHILS PERCENT AUTO 0.2 % (0.0-1.0); EOSINOPHILS ABSOLUTE AUTO 0.3 K/mm3 (0.0-0.4); EOSINOPHILS PERCENT AUTO 2.4 % (0.0-6.0); HEMATOCRIT 33.4 % (42.0-52.0); HEMOGLOBIN 11.4 gm/dl (14.0-18.0); IMMATURE GRAN ABSOLUTE AUTO 0.09 K/mm3 (0.00-0.05); IMMATURE GRAN PERCENT AUTO 0.7 % (0.0-0.4); LYMPHOCYTES ABSOLUTE AUTO 0.6 K/mm3 (1.0-4.8); LYMPHOCYTES PERCENT AUTO 5.1 % (24.0-44.0); MEAN CORPUSCULAR HEMOGLOBIN 30.3 pg (28.0-32.0); MEAN CORPUSCULAR HGB CONC 34.1 g/dl (32.0-36.0); MEAN CORPUSCULAR VOLUME 88.8 fl (83.0-99.0); MEAN PLATELET VOLUME 8.2 fl (9.4-12.4); MONOCYTES ABSOLUTE AUTO 0.8 K/mm3 (0.0-0.8); MONOCYTES PERCENT AUTO 6.6 % (0.0-8.0); NEUTROPHILS ABSOLUTE AUTO 10.6 K/mm3 (1.8-7.7); PLATELET COUNT,PLT 293 K/mm3 (150-400); RED BLOOD CELL COUNT 3.76 M/mm3 (4.52-5.90)
[2023-06-18 13:18] LABS: HEMOGLOBIN A1C 8.1 %
[2023-06-18 13:19] LABS: A/G RATIO 0.8 (1-2); ALBUMIN 3.2 g/dl (3.4-5.0); ANION GAP 13.9 (5-15); BILIRUBIN TOTAL 0.5 mg/dL (0.2-1.0); CALCIUM 8.7 mg/dL (8.5-10.1); CREATININE 1.8 mg/dL (0.7-1.3); EST CRCL DRUG DOSING (CG) 31.01 mL/min; MAGNESIUM 1.4 mg/dL (1.8-2.4); POTASSIUM,K 3.9 mEq/L (3.5-5.1); PROTEIN TOTAL,TP 7.1 g/dl (6.4-8.2)
[2023-06-18] MEDS ORDERED: Magnesium Sulfate/Water 2 GM in Premix Bag 1 BAG IV ONE (13:58)
[2023-06-18] MEDS ORDERED: Lactated Ringers 1,000 ML IV SCH ×2 (14:00)
[2023-06-18] MEDS ORDERED: Metoclopramide 10 MG/2 ML SDV IVPUSH ONE (14:03)
[2023-06-18] MEDS ORDERED: Dicyclomine 10 MG Cap PO ONE (14:03)
== END 2023-06-18 16:45 | disposition home or self-care (01) ==
LOC: JD.ED 12:11
DX: A08.4 Viral intestinal infection, unspecified (principal); E83.42 Hypomagnesemia; E11.22 Type 2 diabetes mellitus with diabetic chronic kidney disease; I12.9 Hypertensive chronic kidney disease with stage 1 through stage 4 chronic kidney disease, or unspecified chronic kidney disease; N18.30 Chronic kidney disease, stage 3 unspecified; E87.1 Hypo-osmolality and hyponatremia; E66.9 Obesity, unspecified; J44.9 Chronic obstructive pulmonary disease, unspecified; E78.00 Pure hypercholesterolemia, unspecified; Z86.16 Personal history of COVID-19; Z79.82 Long term (current) use of aspirin; Z79.899 Other long term (current) drug therapy; Z88.8 Allergy status to other drugs, medicaments and biological substances
CPT/HCPCS: 36415; 80053; 82947; 83036; 83605; 83735; 83880; 84484; 85025; 93005; 93010; 96365; 96366; 96375; 99283-25; 99284; A9270-GY; J2765; J3475; J3490; J7050; J7120

== ENCOUNTER 2023-08-02 17:28 | Emergency (ER) | payer BC, MEDICARE ==
[2023-08-02] MEDS: Albuterol/Ipratropium 3.0-0.5 MG/3 ML Neb Soln NEB SCH (18:30)
[2023-08-02 18:45] LABS: BASOPHILS PERCENT AUTO 0.3 % (0.0-1.0); EOSINOPHILS PERCENT AUTO 0.1 % (0.0-6.0); HEMOGLOBIN 11.5 gm/dl (14.0-18.0); IMMATURE GRAN ABSOLUTE AUTO 0.07 K/mm3 (0.00-0.05); IMMATURE GRAN PERCENT AUTO 0.6 % (0.0-0.4); LYMPHOCYTES PERCENT AUTO 7.7 % (24.0-44.0); MEAN CORPUSCULAR HEMOGLOBIN 30.7 pg (28.0-32.0); MEAN CORPUSCULAR HGB CONC 33.8 g/dl (32.0-36.0); MEAN CORPUSCULAR VOLUME 90.7 fl (83.0-99.0); MEAN PLATELET VOLUME 8.4 fl (9.4-12.4); MONOCYTES ABSOLUTE AUTO 0.6 K/mm3 (0.0-0.8); MONOCYTES PERCENT AUTO 4.4 % (0.0-8.0); NEUTROPHILS ABSOLUTE AUTO 10.9 K/mm3 (1.8-7.7); NEUTROPHILS PERCENT AUTO 86.9 % (41.0-71.0); PLATELET COUNT,PLT 291 K/mm3 (150-400); RED BLOOD CELL COUNT 3.75 M/mm3 (4.52-5.90); WHITE BLOOD CELL COUNT,WBC 12.54 K/mm3 (3.9-11.3)
[2023-08-02 19:15] LABS: ALBUMIN 3.7 g/dl (3.4-5.0); ANION GAP 16.2 (5-15); BILIRUBIN TOTAL 0.4 mg/dL (0.2-1.0); BUN/CREATININE RATIO 16.7 (14-18); CALCIUM 9.5 mg/dL (8.5-10.1); CREATININE 1.5 mg/dL (0.7-1.3); EST CRCL DRUG DOSING (CG) 37.22 mL/min; POTASSIUM,K 5.2 mEq/L (3.5-5.1); PROTEIN TOTAL,TP 7.4 g/dl (6.4-8.2)
[2023-08-02 19:22] LABS: CORONAVIRUS COVID-19 NAA NEGATIVE (NEGATIVE); INFLUENZA A NAA POSITIVE (NEGATIVE); RESPIRATORY SYNCYTIAL VIR NAA NEGATIVE (NEGATIVE)
[2023-08-02] MEDS: methylPREDNISolone Sodium Succinate 125 MG/2 ML SDV IVPUSH ONE (19:35)
[2023-08-02] MEDS: Sodium Chloride 0.9% 10 ML Syringe FLUSH PRN (19:37)
[2023-08-02] MEDS: Oseltamivir 75 MG Cap PO ONE (20:45)
[2023-08-02 22:07] VITALS: BP 177/63; PULSE 97
== END 2023-08-02 20:54 | disposition home or self-care (01) ==
LOC: JD.ED 17:28
DX: J10.1 Influenza due to other identified influenza virus with other respiratory manifestations (principal); E87.1 Hypo-osmolality and hyponatremia; I10 Essential (primary) hypertension; J44.9 Chronic obstructive pulmonary disease, unspecified; E66.9 Obesity, unspecified; E78.00 Pure hypercholesterolemia, unspecified; E11.9 Type 2 diabetes mellitus without complications; Z68.31 Body mass index [BMI] 31.0-31.9, adult; Z86.16 Personal history of COVID-19; Z88.8 Allergy status to other drugs, medicaments and biological substances; Z79.899 Other long term (current) drug therapy
CPT/HCPCS: 0241U; 36415; 71046; 80053; 83880; 84484; 85025; 93005; 94640; 96374; 99285; A9270; J2930; J3490; J7620-GY

== ENCOUNTER 2023-12-19 15:06 | Emergency (ER) | payer MEDICARE ==
[2023-12-19] MEDS: Oxymetazoline 0.05% Nasal Spray 30 ML Bottle NAS ONE (15:45)
[2023-12-19 16:44] VITALS: BP 138/53; PULSE 64
== END 2023-12-19 16:40 | disposition home or self-care (01) ==
LOC: JD.ED 15:06
DX: R04.0 Epistaxis (principal); I10 Essential (primary) hypertension; E78.00 Pure hypercholesterolemia, unspecified; J44.9 Chronic obstructive pulmonary disease, unspecified; E11.9 Type 2 diabetes mellitus without complications; E66.9 Obesity, unspecified; Z86.16 Personal history of COVID-19; Z79.899 Other long term (current) drug therapy; Z79.4 Long term (current) use of insulin; Z88.8 Allergy status to other drugs, medicaments and biological substances
CPT/HCPCS: 30901; 99283; C9046

== ENCOUNTER 2025-05-17 12:48 | Emergency (ER) | payer MEDICARE ==
[2025-05-17 14:29] VITALS: BP 162/84; PULSE 62
== END 2025-05-17 14:25 | disposition home or self-care (01) ==
LOC: JD.ED 12:48
DX: R04.0 Epistaxis (principal); I10 Essential (primary) hypertension; J44.9 Chronic obstructive pulmonary disease, unspecified; E78.00 Pure hypercholesterolemia, unspecified; E66.9 Obesity, unspecified; E11.9 Type 2 diabetes mellitus without complications; Z88.8 Allergy status to other drugs, medicaments and biological substances; Z79.899 Other long term (current) drug therapy; Z86.16 Personal history of COVID-19; Z68.32 Body mass index [BMI] 32.0-32.9, adult
CPT/HCPCS: 30901; 99283

== ENCOUNTER 2025-06-05 10:13 | Emergency (ER) | payer MEDICARE ==
[2025-06-05 12:36] VITALS: BP 128/45; PULSE 61
== END 2025-06-05 12:45 | disposition home or self-care (01) ==
LOC: JD.ED 10:13
DX: R04.0 Epistaxis (principal); I10 Essential (primary) hypertension; E78.00 Pure hypercholesterolemia, unspecified; E11.9 Type 2 diabetes mellitus without complications; Z86.16 Personal history of COVID-19; Z88.5 Allergy status to narcotic agent; Z88.8 Allergy status to other drugs, medicaments and biological substances; Z79.899 Other long term (current) drug therapy
CPT/HCPCS: 30901; 99283; A9270